=== PATIENT | male | born 1955 | race Caucasian/White ===

== ENCOUNTER 2016-09-17 17:18 | Inpatient (IN) ==
[2016-09-17] MEDS ORDERED: NITROGLYCERIN 2% OINT 1 INCH/GM PACK TOP STA (18:35)
[2016-09-17] MEDS ORDERED: ASPIRIN 325 MG TABLET PO STA (18:35)
[2016-09-17] MEDS ORDERED: ALUM/MAG/SIMETH/LIDO VISC 1:1 30 ML BOTTLE PO STA (18:35)
[2016-09-17] MEDS ORDERED: ONDANSETRON 4 MG/2 ML VIAL IV STA (18:35)
[2016-09-17] MEDS ORDERED: METOPROLOL TARTRATE 25 MG TABLET PO STA (18:35)
[2016-09-17] MEDS ORDERED: FUROSEMIDE 40 MG/4 ML VIAL IV STA (18:35)
[2016-09-17] MEDS ORDERED: MORPHINE 2 MG/1 ML SYRINGE IV STA (18:35)
[2016-09-17] MEDS ORDERED: ALBUTEROL/IPRATROPIUM 3 ML NEB RESP TX STA (18:37)
[2016-09-17] MEDS ORDERED: methylPREDNISolone SOD SUC 125 MG/2 ML VIAL IV STA (18:37)
[2016-09-17] MEDS ORDERED: FUROSEMIDE 40 MG/4 ML VIAL ONE (18:42)
[2016-09-17] MEDS ORDERED: METOPROLOL TARTRATE 25 MG TABLET ONE (18:42)
[2016-09-17] MEDS ORDERED: ONDANSETRON 4 MG/2 ML VIAL ONE (18:42)
[2016-09-17] MEDS ORDERED: NITROGLYCERIN 2% OINT 1 INCH/GM PACK TOP ONE (18:42)
[2016-09-17] MEDS ORDERED: MORPHINE 2 MG/1 ML SYRINGE ONE (18:43)
[2016-09-17] MEDS ORDERED: ASPIRIN 325 MG TABLET ONE (18:43)
[2016-09-17] MEDS ORDERED: ALUM/MAG/SIMETH/LIDO VISC 1:1 30 ML BOTTLE PO ONE (18:43)
[2016-09-17 18:47] LABS: Basophils # 0.1 10*3/uL (0.0-0.2); Basophils % 0.7 % (0.0-0.8); Eosinophils % 0.4 % (0.00-10.9); Hematocrit 40.5 VOL% (42.0-52.0); Hemoglobin 14.6 GM/DL (14.0-18.0); Immature Granulocytes % 0.3 %; Immature Granulocytes Absolute 0.03 #; Lymphocytes # 1.3 10*3/uL (1.4-4.0); Lymphocytes % 13.8 % (21.2-54.2); Mean Corpuscular Hemoglobin 35 PG (27-34); Mean Corpuscular Volume 97.4 FL (87-102); Mean Platelet Volume 9.6 FL (9.6-12.0); Monocytes # 0.6 10*3/uL (0.11-0.8); Monocytes % 6.6 % (1.7-12.7); Neutrophils # 7.1 10*3/uL (1.4-7.4); Neutrophils % 78.2 % (38.7-73.9); Platelet Count 194 10*3/uL (130-400); Red Blood Count 4.16 10*6/uL (3.8-5.5); Red Cell Distribution Width 11.9 % (9.3-17.3); White Blood Count 9.1 10*3/uL (4.5-13.71)
--- NOTE | 2016-09-17 19:01 | XRay Report ---
History: Chest pain Date: 09/17/2016 at 6:30 PM Study: Chest x-ray AP portable Comparison exam: Chest x-ray June 15, 2014 There is mild cardiomegaly. The mediastinal contours are unchanged. The pulmonary vasculature is not grossly engorged. There is no gross pleural effusion. The exam was performed in shallow inspiration. There is mild platelike scar or subsegmental atelectasis in the lung bases. There is no yasir pneumonia. The osseous structures are unchanged. Impression: Cardiomegaly without overt CHF. Shallow inspiration with mild platelike scarring or subsegmental atelectasis in the lung bases PROCEDURE INTERPRETED AT [facility] DEPARTMENT OF RADIOLOGY Final Report Signed by: Dr. Regina Foley
--- NOTE | 2016-09-17 19:01 | Emergency Department Note ---
IGigi Emily, am scribing for, and in the presence of, Tom Vallejo MD 18: 48. Genevieve Olivera Charles R, MD, personally performed the services described in this documentation, ascribed by Janelle Yu in my presence, and it is both accurate and complete 901 . Arrival - Arrival Chief Complaint: Chest Pain Stated Complaint: CHEST PAIN ED Nursing Triage Note: c/o chest pain for a couple of hours. hx:OK. c/o sweating, n/v, sob. feed management advisor was Dr. Francis but has not seen in a while Mode of Arrival: Wheelchair Limitations: No Limitations Source: Patient Time Seen by Provider: 09/17/16 18:28 - History of Present Illness HPI Narrative: Pt is a 61 y/o male who came to ED with c/o mid sternal chest pain that started around 4:30pm today and now has resolved to a 1 point on pain scale. 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 Pt's last OK was in 2006, with stents and balloons. He was seeing Dr. Francis and had stress test 2 years ago, but has not seen someone since. Pt states he "chewed up a 325 aspirin" when pain started today, and is compliant with daily medications. Pt takes fish oil pills but denies taking plavax. Pt had associated sxs of frothy fluid in chest, orthopnea, N/V, diaphoresis, and bilateral pedal edema and numbness to arches of feet. 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 Onset (ago): hour(s) Consistency: constant, now resolved Severity: mild, moderate Severity scale (1-10): 1 Quality: sharp Allergies/Adverse Reactions: Allergies Allergy/AdvReac Type Severity Reaction Status Date / Time lisinopril Allergy ANAPHYLAXIS Verified 09/17/16 17:36 Home Medications: Home Medications Medication Instructions Recorded Confirmed Type Unable To Obtain [Unable to Obtain] 09/17/16 09/17/16 History Review of System - Review of System 12 point system: reviewed and no additional remarkable complaints except as stated - Review of System Constitutional: Present: diaphoresis. Absent: chills, fever Head/Ears/Nose/Throat: Absent: nasal drainage, sore throat Respiratory: Present: cough, respiratory distress (chronic SOB) Cardiovascular: Present: chest pain, orthopnea, edema (bilateral feet). Absent : palpitations Gastrointestinal: Present: nausea, vomiting. Absent: abdominal pain Musculoskeletal: Present: arm pain (left elbow with skin growth of tumor has grown since last visit; painful; ). Absent: back pain, leg pain, neck pain Skin: Absent: rash Neurological: Present: numbness (arches of feet). Absent: headache, paresthesias Psychiatric: Absent: anxiety Medical,Surgical,& Family Hx - Medical History Cardio: History of: Hypertension, [place] Endocrine: History of: Dyslipidemia Respiratory: History of: COPD - Surgical History Cardiac Surgeries: Sugical HX of: Cardiac Catheterization - Social History Smoking Status: Never smoker Frequency of Alcohol Use: Frequently Type of Drug Use: None Marital Status: Lives With:: Spouse Functional capacity: independent ambulation Exam Vital Signs: Vital Signs Temperature 97.2 F L 09/17/16 17:29 Pulse Rate 100 H 09/17/16 18:56 Respiratory Rate 18 09/17/16 18:56 Blood Pressure 171/99 09/17/16 17:29 O2 Sat by Pulse Oximetry 98 09/17/16 18:54 - General General appearance: alert, in no apparent distress - Head Head exam: Present: atraumatic, normocephalic - Eye Eye exam: Present: PERRL, EOMI - ENT ENT exam: Present: mucous membranes moist. Absent: mucous membranes dry - Neck Neck exam: Present: full ROM. Absent: tenderness - Chest Chest inspection: Present: symmetric chest wall rise. Absent: tenderness - Respiratory Respiratory exam: Present: rhonchi (bilateral). Absent: normal lung sounds bilaterally, accessory muscle use - Cardiovascular Cardiovascular exam: Present: regular rate, normal rhythm, normal heart sounds - Abdominal Exam Abdominal exam: Present: soft. 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 Absent: tenderness - Back Exam Back exam: Present: full ROM. Absent: tenderness - Neurological Exam Neurological exam: Present: alert, oriented X3, CN II-XII intact, normal gait. Absent: motor sensory deficit - Psychiatric Psychiatric exam: Present: normal affect, normal mood - Skin Skin exam: Present: warm, dry Course - Consultations Consultation #1: Dr. Erickson will admit patient Time: 19:27 Results - Labs CBC & BMP: 09/17/16 18:16 09/17/16 18:16 Lab Results: I have reviewed the patients labs Labs: Laboratory Tests 09/17/16 18:16 Hct 40.5 L MCH 35 H Neut % (Auto) 78.2 H Lymph % (Auto) 13.8 L Lymph # (Auto) 1.3 L Laboratory Tests 09/17/16 18:16 Anion Gap 18.1 H Glucose 144 H AST 159 H ALT 157 H - Diagnostic Findings Procedure: Chest x-ray: report reviewed by me (Cardiomegaly without overt CHF. Shallow inspiration with mild platelike scarring or subsegmental atelectasis in the lung bases.) Critical Care Time Critical Care Time: Yes Total Critical Care Time: 60 Disposition Clinical Impression: Chest pain, Stable angina Case discussed with: patient, patient's family Disposition: Still a Patient Condition: Stable Time of Disposition: 19:27
[2016-09-17] MEDS ORDERED: methylPREDNISolone SOD SUC 125 MG/2 ML VIAL ONE (19:10)
--- NOTE | 2016-09-17 19:13 | EKG Report ---
Stationary ECG Study [facility] ER Test Date: 09/17/2016 5:33:33 PM Pat Name: DESIREE SÁNCHEZ Department: Room: Gender: M Associate Quality Engineer: Devon Harris : 1955 Requested by: Tom Garcia Order Number: [id number] Ousmane MD: LANCE PEREZ Intervals [place] Rate: 86 P: 53 MS: 159 QRS: 17 QRSD: 98 T: 58 QT: 354 QTc: 398 Interpretive Statements SINUS RHYTHM NORMAL ECG Electronically Signed On 09-18-16 04:22:21 SQUAD LEADER by LANCE PEREZ [email or web address]
[2016-09-17 19:22] LABS: Alanine Aminotransferase 157 U/L (16-61); Albumin 4.2 G/DL (3.4-5.0); Alkaline Phosphatase 72 U/L (45-117); Aspartate Amino Transferase 159 U/L (0-37); Blood Urea Nitrogen 16 MG/DL (7-18); Calcium 9.7 MG/DL (8.5-10.1); Glucose 144 MG/DL (74-106); Magnesium 1.9 MG/DL (1.8-2.4); Potassium 4.1 MMOL/L (3.5-5.1); Sodium 143 MMOL/L (136-145); Total Protein 7.6 G/DL (6.4-8.3)
[2016-09-17 19:23] LABS: Troponin I Only < 0.015 NG/ML (0.00-0.045)
[2016-09-17] MEDS ORDERED: MAGNESIUM SULF RIDER 4 GM in PREMIX 1 EACH IV PRN (20:25)
[2016-09-17] MEDS ORDERED: POTASSIUM CHLORIDE 20 MEQ TABLET PO PRN (20:25)
[2016-09-17] MEDS ORDERED: ONDANSETRON 4 MG/2 ML VIAL IV PRN (20:25)
[2016-09-17] MEDS ORDERED: MAGNESIUM SULF RIDER 2 GM in PREMIX 1 EACH IV PRN (20:25)
[2016-09-17] MEDS: SODIUM CHLORIDE 0.9% 1,000 ML IV SCH (20:46)
[2016-09-17] MEDS ORDERED: INFLUENZA VIRUS VACCINE 0.5 ML SYRINGE IM ONE (20:55)
[2016-09-17] MEDS ORDERED: PNEUMOCOCCAL VACCINE (23 VALENT) 0.5 ML VIAL IM ONE (20:55)
[2016-09-17] MEDS: ENOXAPARIN 100 MG/ML SYRINGE SUBCUT SCH (21:21)
--- NOTE | 2016-09-18 00:17 | EKG Report ---
Stationary ECG Study [facility] Test Date: 09/18/2016 12:10:32 AM Pat Name: DESIREE SÁNCHEZ Department: Room: 272 Gender: M Hull Builder: ALVARO : 1955 Requested by: Tom Garcia Order Number: [id number] Ousmane MD: LANCE PEREZ Intervals [place] Rate: 78 P: 54 DC: 156 QRS: 11 QRSD: 100 T: 58 QT: 407 QTc: 441 Interpretive Statements SINUS RHYTHM INCOMPLETE RIGHT BUNDLE BRANCH BLOCK Electronically Signed On 09-18-16 04:30:21 DRIER OPERATOR HEAD by LANCE PEREZ [email or web address]
[2016-09-18] MEDS: NITROGLYCERIN 2% OINT 1 INCH/GM PACK TOP SCH ×4 (01:10→17:45)
[2016-09-18 04:38] LABS: Basophils % 0.4 % (0.0-0.8); Eosinophils % 0.1 % (0.00-10.9); Hematocrit 40.9 VOL% (42.0-52.0); Hemoglobin 14.3 GM/DL (14.0-18.0); Immature Granulocytes % 0.7 %; Immature Granulocytes Absolute 0.06 #; Lymphocytes # 0.8 10*3/uL (1.4-4.0); Lymphocytes % 9.4 % (21.2-54.2); Mean Corpuscular Hemoglobin 34 PG (27-34); Mean Corpuscular Volume 97.6 FL (87-102); Mean Platelet Volume 10.1 FL (9.6-12.0); Monocytes # 0.1 10*3/uL (0.11-0.8); Monocytes % 0.7 % (1.7-12.7); Neutrophils # 7.4 10*3/uL (1.4-7.4); Neutrophils % 88.7 % (38.7-73.9); Platelet Count 235 10*3/uL (130-400); Red Blood Count 4.19 10*6/uL (3.8-5.5); Red Cell Distribution Width 11.9 % (9.3-17.3); White Blood Count 8.4 10*3/uL (4.5-13.71)
[2016-09-18 05:07] LABS: Albumin 4.1 G/DL (3.4-5.0); Bilirubin,Total 1.2 MG/DL (0.2-1.0); Calcium 9.4 MG/DL (8.5-10.1); Osmolality,Calculated 284.4 MOS/KG (273-304); Potassium 4.1 MMOL/L (3.5-5.1); Risk Ratio 3.92; Total Protein 7.5 G/DL (6.4-8.3); VLDL CHOLESTEROL 16.8 MG/DL
--- NOTE | 2016-09-18 08:25 | XRay Report ---
XR chest 2V Indication: Shortness of breath. Comparison: AP chest September 17, 2016 Technique: PA and lateral chest x-ray was performed. Findings: The heart size appears borderline in size, stable. The mediastinal contour and hilar structures demonstrate no significant abnormalities. Lungs are clear. Bones and soft tissues demonstrate no evidence of acute pathology. Impression: 1. No active cardiopulmonary disease. 09/18/2016 8:21 AM PROCEDURE INTERPRETED AT [facility] DEPARTMENT OF RADIOLOGY Final Report Signed by: Dr. Sam Isaac
[2016-09-18] MEDS ORDERED: diphenhydrAMINE CAP 25 MG CAPSULE PO ONE (10:51)
[2016-09-18] MEDS ORDERED: MAGNESIUM SULF RIDER 2 GM in PREMIX 1 EACH IV PRN (10:51)
[2016-09-18] MEDS ORDERED: ASPIRIN 325 MG TABLET PO ONE (10:51)
[2016-09-18] MEDS ORDERED: DIAZEPAM 5 MG TABLET PO ONE (10:51)
[2016-09-18] MEDS ORDERED: POTASSIUM CHLORIDE RIDER 10 MEQ in PREMIX 1 EACH IV PRN (10:51)
--- NOTE | 2016-09-18 10:51 | Cardiology History & Physical ---
Jose Olivera Lauren, RN, am scribing for, and in the presence of, Talon Austin MD 10:41. Assessment and Plan - Time spent with patient Time spent with patient: Greater than 30 minutes (1) Chest pain Status: Acute Assessment and plan: The patient's chest pain is somewhat atypical for cardiac. He though does have risk factors for such. He should have further evaluation. He has multiple risk fashion including family history, known history of coronary disease and percutaneous intervention. Current Visit: Yes (2) Stable angina Status: Acute Assessment and plan: This chest pain certainly may be angina. At present is stable. Current Visit: Yes (3) Shortness of breath Status: Chronic Assessment and plan: He has chronic shortness of breath that is related more to COPD according to his history. Current Visit: Yes (4) Nausea & vomiting Status: Chronic Assessment and plan: This is rather chronic issue. He has had GI evaluation previously was apparently unremarkable. This is based on old charts material. Current Visit: Yes (5) Hypertension Status: Chronic Assessment and plan: Past history this and is on medications. There is some question though if he is compliant with this. Current Visit: Yes (6) COPD (chronic obstructive pulmonary disease) Status: Chronic Assessment and plan: Chronic and secondary probably to his smoking. He is been seen by pulmonary medicine previously. Current Visit: Yes (7) GERD (gastroesophageal reflux disease) Status: Chronic Assessment and plan: He has chronic symptoms of this is probably related to diet as well as obesity. Current Visit: Yes (8) CAD (coronary artery disease) Problem details: Received bare metal stent placement to proximal left anterior descending artery 06/25/07. Status: Acute Assessment and plan: Received bare metal stent placement to proximal left anterior descending artery 06/25/07. Now having chest pain for which he needs reevaluation. Current Visit: Yes (9) Status post placement of bare metal coronary artery stent Problem details: Received bare metal stent placement to proximal left anterior descending artery 06/25/07. Status: Chronic Assessment and plan: This is placement LAD. Had PTCA of circumflex artery. Current Visit: Yes (10) Former smoker Problem details: Quit 4 years ago. Status: Chronic Assessment and plan: Quit 4 years ago. Current Visit: Yes (11) Umbilical hernia Status: Chronic Current Visit: Yes History of Present Illness Chief complaint: chest pain, nausea, vomiting History of present illness: Mr. Bolaños is a 61 year old male, no longer routinely followed by Cardiology. He has been without insurance for quite some time and due to financial reasons, he He has a history of coronary artery disease status post bare metal stent to the proximal left anterior descending artery 06/25/07, hypertension, chronic obstructive pulmonary disease, gastroesophageal reflux disease with hiatal hernia, and obesity. He has risk factors significant for: age, former smoker, hypertension, sedentary lifestyle, family history of heart disease, personal history. He quit smoking 4 years ago. He presented to the emergency department last night with complaints of midsternal chest discomfort that began around 1630. He reports this is the same pain he was having with previous DE. Mr. Bolaños describes this pain as sharp, midsternal, and non-radiating. He has some episodes of chest tightness. This actually is precipitated with coughing He reports he had some associated nausea with vomiting and diaphoresis. He reports feeling like he "couldn't breathe" like he might pass out. He reports he always has issues with shortness of breath due to his lung disease/COPD. He reports spitting up a "white phlegm" after he vomited. He reports having occasional midsternal to left breast chest discomfort when he picks up something heavy and reportedly has bilateral lower extremity edema. He though has no edema today and he has no PND or orthopnea symptomatology. 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 He is currently uninsured and attempting to raise money to have this removed. He has had several negative stress tests since his stent in 2006, last stress test was done 06/16/14 but I am unable to open this report in the system. Previous stress test from 02/19/13 reveals ejection fraction of 55% with relatively normal stress test. Thus far his cardiac biomarkers are negative and ECG is unremarkable. He is allergic to lisinopril. He reports his throat closed off when he was previously on this medication. I discussed cardiac catheterization and percutaneous coronary intervention with the patient and available family. I reviewed with them the indications for the procedure and the basis of how the procedure would be carried out. I also reviewed with them the risk of the procedure which include but not necessarily limited to access site bleeding, bruising, pain, swelling or vascular injury that may require emergency vascular surgery, blood transfusion, or thrombin injection. Also discussed the possibility of stroke, myocardial infarction, arrhythmia which may require electrocardioversion, and the possibility of dye reaction that would require medical therapy. Also discussed the possibility of coronary artery injury, ruptured, closure or perforation that may require emergency bypass surgery. We also discussed the possibility of from a major complication. They voice understanding and agree to proceed. I have discussed this with Dr. Van. Home Medications Medication Instructions Recorded Confirmed Type Amlodipine Besylate 10 mg PO DAILY 09/18/16 09/18/16 History Aspirin [Ecotrin] 325 mg PO DAILY 09/18/16 09/18/16 History Losartan/Hydrochlorothiazide 1 tablet PO DAILY 09/18/16 09/18/16 History [Losartan-Hctz 100-12.5 mg Tab] Magnesium Chloride [Slow Mag] 64 mg PO BID 09/18/16 09/18/16 History Metoprolol Tartrate 25 mg PO DAILY 09/18/16 09/18/16 History [place]-3S/Dha/Epa/Fish Oil [Fish 1 capsule PO DAILY 09/18/16 09/18/16 History Oil 1,200 mg Softgel] Allergies Allergy/AdvReac Type Severity Reaction Status Date / Time lisinopril Allergy ANAPHYLAXIS Verified 09/17/16 17:36 - Constitutional Constitutional: Present: chills, fatigue, fever(s), night sweats. Absent: anorexia, daytime sleepiness, excessive sweating, frequent falls, headache(s), increased appetite, lethargy, malaise, stops breathing during sleep, weakness, weight gain, weight loss - EENT Eyes: Absent: blurry vision, diplopia, loss of vision Ears: Absent: decreased hearing, ear discharge, ear pain Nose, mouth and throat: Present: nasal congestion (reports he had a cold 2 weeks ago). Absent: dysphagia, epistaxis, headache(s), hoarseness, lip swelling , neck mass, neck pain, sinus pressure, sore throat, throat swelling, tongue swelling, vertigo - Cardiovascular Cardiovascular: Present: as per HPI, chest pain at rest, chest pain with activity, diaphoresis, dyspnea, dyspnea on exertion, edema (to BLE). Absent: claudication, radiating jaw, neck or arm pain, lightheadedness, orthopnea, palpitations, PND - Respiratory Respiratory: Present: as per HPI, cough, dyspnea, dyspnea on exertion. Absent: hemoptysis, wheezing, snoring, pain on inspiration, change in phlegm color - Gastrointestinal Gastrointestinal: Present: abdominal pain (bilateral lower quadrants), nausea, vomiting, other (umbilical hernia ). Absent: bloating, change in bowel habits, coffee ground emesis, constipation, cramping, diarrhea, dyspepsia, dysphagia, early satiety, fecal incontinence, heartburn, hematemesis, hematochezia, loose stools - Genitourinary Genitourinary: Absent: difficulty urinating, dysuria, flank pain, hematuria, urinary frequency, urinary incontinence - Musculoskeletal Musculoskeletal: Absent: arthralgias, back pain, joint swelling, limited range of motion, muscle cramps, muscle weakness, myalgias - Neurological Neurological: Present: numbness (to soles of bilateral feet x 3 months). Absent : abnormal gait, abnormal speech, behavioral changes, confusion, convulsions, disequilibrium, dizziness, focal weakness, frequent falls, headache(s), memory loss, paresthesias, radicular pain, syncope, tremor(s) - Psychiatric Psychiatric: Absent: anxiety, confusion, depression, difficulty concentrating, memory loss, panic attacks - Endocrine Endocrine: Absent: cold intolerance, fatigue, heat intolerance, polydipsia, polyphagia - Hematologic/Lymphatic Hematologic/Lymphatic: Absent: easy bleeding, easy bruising, lymphadenopathy Medical,Surgical,& Family Hx - Medical History Cardio: History of: CAD, Hypertension, [place] Endocrine: History of: Dyslipidemia Respiratory: History of: COPD - Surgical History Cardiac Surgeries: Sugical HX of: Cardiac Catheterization - Social History Smoking Status: Never smoker Frequency of Alcohol Use: Frequently Type of Drug Use: None Cardiology Physical Exam - Constitutional Vitals: Vital Signs Temp Pulse Resp BP Pulse Ox 97.6 F 94 H 21 132/81 95 09/18/16 04:00 09/18/16 04:00 09/18/16 04:00 09/18/16 04:00 09/18/16 04:00 Intake and Output 09/17/16 09/18/16 09/18/16 22:59 06:59 14:59 Intake Total 120 / 120 Output Total 500 / 500 Balance 120 / 120 -500 / -500 Intake: Oral 120 / 120 Output: Urine 500 / 500 Other: # Voids 1 Weight 250 lb 247 lb 1 oz Exam: General appearance: no acute distress, morbidly obese Head exam: Present: normal inspection, normocephalic Eye exam: Absent: conjunctival injection, periorbital swelling, scleral icterus Pupils: Present: BOUBACAR. Absent: irregular ENT exam: Present: normal exam, normal external ear exam Neck exam: Present: normal inspection. The patient's right carotid artery bruit. Bilateral carotids with good upstroke. Absent: tenderness Respiratory exam: Present: clear to auscultation bilaterally. Good air movement. Absent: accessory muscle use, chest wall tenderness, rales, rhonchi, stridor, wheezes. Cardiovascular exam: Present: regular rate and rhythm. No murmur gallop or rub. Absent: carotid bruit, diastolic murmur, systolic murmur GI/Abdominal exam: Present: normal bowel sounds, soft. Obese. Absent: distended, mass, tenderness Extremities exam: Present: normal inspection, edema (trace), other (1-2+ DP pulses bilaterally). Absent: calf tenderness Back exam: Present: normal inspection. Absent: vertebral tenderness Neurological exam: Present: alert, oriented X3, other (grossly intact, no resting or essential tremor) Psychiatric exam: Present: normal affect, normal mood Skin exam: Present: normal color, warm, dry, intact Result/EKG - Labs CBC & BMP: 09/18/16 02:40 09/18/16 02:40 Lab Results: I have reviewed the past 24 hour labs Labs: Laboratory Results - last 24 hr 09/17/16 09/17/16 09/18/16 20:28 22:52 02:40 WBC RBC Hgb Hct MCV MCH MCHC RDW Plt Count MPV Neut % (Auto) Lymph % (Auto) [place] % (Auto) Eos % (Auto) Baso % (Auto) Neut # (Auto) Lymph # (Auto) [place] # (Auto) Eos # (Auto) Baso # (Auto) Immature Gran % Nucleated RBC % Immature Gran # Nucleated RBCs # Sodium Potassium Chloride Carbon Dioxide Anion Gap BUN Creatinine GFR Calculation BUN/Creatinine Ratio Glucose Calculated Osmolality Calcium Magnesium Total Bilirubin AST ALT Alkaline Phosphatase Troponin I < 0.015 < 0.015 B-Natriuretic Peptide Total Protein Albumin Globulin Albumin/Globulin Ratio Triglycerides Cholesterol LDL Cholesterol VLDL Cholesterol HDL Cholesterol Heart Disease Risk Ratio Free T4 TSH 3rd Generation 1.600 09/18/16 09/18/1609/18/17 02:40 02:40 02:40 WBC 8.4 RBC 4.19 Hgb 14.3 Hct 40.9 L MCV 97.6 MCH 34 MCHC 35.0 RDW 11.9 Plt Count 235 D MPV 10.1 Neut % (Auto) 88.7 H Lymph % (Auto) 9.4 L [place] % (Auto) 0.7 L Eos % (Auto) 0.1 Baso % (Auto) 0.4 Neut # (Auto) 7.4 Lymph # (Auto) 0.8 L [place] # (Auto) 0.1 L Eos # (Auto) 0.0 Baso # (Auto) 0.0 Immature Gran % 0.7 Nucleated RBC % 0.0 Immature Gran # 0.06 Nucleated RBCs # 0.00 Sodium 140 Potassium 4.1 Chloride 100 Carbon Dioxide 26 Anion Gap 18.1 H BUN 18 Creatinine 1.10 GFR Calculation 95 BUN/Creatinine Ratio 16.00 Glucose 176 H Calculated Osmolality 284.4 Calcium 9.4 Magnesium 2.0 Total Bilirubin 1.20 H AST 120 H ALT 141 H Alkaline Phosphatase 72 Troponin I B-Natriuretic Peptide 55 Total Protein 7.5 Albumin 4.1 Globulin 3.4 Albumin/Globulin Ratio 1.2 Triglycerides 84 Cholesterol 259 H LDL Cholesterol 165.0 VLDL Cholesterol 16.8 HDL Cholesterol 66 H Heart Disease Risk Ratio 3.92 Free T4 TSH 3rd Generation 09/18/16 02:40 WBC RBC Hgb Hct MCV MCH MCHC RDW Plt Count MPV Neut % (Auto) Lymph % (Auto) [place] % (Auto) Eos % (Auto) Baso % (Auto) Neut # (Auto) Lymph # (Auto) [place] # (Auto) Eos # (Auto) Baso # (Auto) Immature Gran % Nucleated RBC % Immature Gran # Nucleated RBCs # Sodium Potassium Chloride Carbon Dioxide Anion Gap BUN Creatinine GFR Calculation BUN/Creatinine Ratio Glucose Calculated Osmolality Calcium Magnesium Total Bilirubin AST ALT Alkaline Phosphatase Troponin I B-Natriuretic Peptide Total Protein Albumin Globulin Albumin/Globulin Ratio Triglycerides Cholesterol LDL Cholesterol VLDL Cholesterol HDL Cholesterol Heart Disease Risk Ratio Free T4 1.12 TSH 3rd Generation - Impressions Impressions: ECG with normal sinus rhythm within normal limits. - EKG EKG results: interpreted by me, sinus rhythm I, Talon Austin MD, personally performed the services described in this documentation, ascribed by Garcai,Jayne, RN in my presence, and it is both accurate and complete .
[2016-09-18] MEDS: FUROSEMIDE 20 MG/2 ML VIAL IV SCH ×2 (11:03→16:04)
[2016-09-18] MEDS: ENOXAPARIN 100 MG/ML SYRINGE SUBCUT SCH ×2 (11:32→20:13)
[2016-09-18] MEDS: ASPIRIN EC 325 MG TABLET PO SCH (11:32)
[2016-09-18] MEDS: PANTOPRAZOLE 40 MG TABLET PO SCH (11:33)
[2016-09-18] MEDS ORDERED: HEPARIN/NACL 0.9% 2 UNITS/ML 0 ML IV ONE (12:20)
[2016-09-18] MEDS ORDERED: LIDOCAINE 1% 20 ML VIAL ONE (12:20)
[2016-09-18] MEDS ORDERED: HEPARIN/NACL 0.9% 2 UNITS/ML 500 ML IV ONE ×2 (12:22→12:28)
[2016-09-18] MEDS ORDERED: HYDROmorphone 2 MG/1 ML VIAL ONE (12:36)
[2016-09-18] MEDS ORDERED: MIDAZOLAM 2 MG/2 ML VIAL ONE (12:36)
--- NOTE | 2016-09-18 14:32 | Cardiac Catheterization ---
Date of Procedure:: 09/18/16 Pre-op Diagnosis: Chest pain CAD Post-op diagnosis: same Procedure: Cardiac catheterization procedure note #1 left heart catheterization #2 selective coronary angiography #3 left ventriculography #4 LIRA angiograph #5 unsuccessful angioplasty LAD Omnipaque was used for the procedure I description of procedure Following sterile preparation and draping of the right groin local anesthesia was achieved by infiltration of 1% Xylocaine. Using a Cook needle the right femoral artery was cannulated and every 6 sheath was inserted. A 6 [place] pigtail catheter was introduced and advanced retrograde across aortic valve into the left ventricle and the end-diastolic pressure was recorded. Left ventriculography was performed the SLADE projection using 24 cc of contrast material. A pullback was made across phytic valve. The pigtail catheter was exchanged for a 6 [place] left Natalia catheter and left coronary angiography was performed in several SLADE and DAVID projections. The cath exchanged for a 6 [place] right Amplatz catheter and right coronary angiography was performed in SLADE and DAVID projections. Cath exchanged for a 6 [place] left Natalia guiding catheter in the left main was recannulated. Despite several attempts the wire could not cross the proximal stenosis. The proximal vessel is tortuous and has a knuckle and even a venture catheter could not cross the lesion. The wire was removed. A 6 [place] VANCE catheter was introduced and LIRA angiography was performed in the DAVID projection only. The catheter and sheath were then removed and the femoral arteriotomy site was sealed with a minx closure device with prompt cessation of bleeding and prompt return of the femoral and foot pulses. No complications ensued. The patient was transferred to the telemetry floor in stable condition. II hemodynamic data A mean of 94. LV 138/18 III selective coronary angiography The left main trunk is widely patent. The LAD has a long 90% stenosis before the first septal advertising operations manager and the previously stented segment. Diagonal branch has mild disease. The circumflex has 40% OM1 stenosis. The OM 2 branch has mild disease only. The dominant coronary artery has a long 90% mid vessel stenosis and a 70% stenosis at the bifurcation. The PDA and posterior branches have mild disease only. The LIRA is a 3 mm widely patent vessel. IV left ventriculography Ejection fraction 60%. No mitral vegetation. No wall motion abnormality. V conclusions Increased LVEDP 18 Ejection fraction 60% with no wall motion abnormalities No mitral regurgitation No aortic valve gradient Left main trunk-patent LAD-long 90% proximal stenosis before first septal advertising operations manager with patent stent segment beyond first septal advertising operations manager. Diagonal branch= mild disease only Circumflex system-40% OM1 and mild disease in the OM 2 branch Dominant RCA-90% mid stenosis and 70% at the bifurcation. The PDA and portably branches have mild disease only LIRA-3 mm non-tortuous patent vessel Unsuccessful angioplasty proximal LAD due to inability the wires to cross the lesion. The proximal vessel is tortuous and has a knob which prevented the wire from crossing the lesion. disposition The patient status post LAD stent in 2006. Since that time has been severe disease progression and he now presents with unstable angina. Cardiac cath shows severe proximal LAD disease before the first septal advertising operations manager and previously stented segment and there is severe disease in the dominant right coronary artery in the mid and distal segment. Ejection fraction is 60%. Significant myocardium at risk. Continue normal saline hydration and Lovenox. A surgery consult will be obtained. I reviewed the cine pictures with his Joana. Implants: No implants Anesthesia: moderate conscious sedation Surgeon / Physician: Alexadnr Van Estimated blood loss: minimal Specimens: none sent Condition: stable - Medications / Follow-up
[2016-09-18] MEDS ORDERED: ZALEPLON 5 MG CAPSULE PO PRN (14:33)
[2016-09-18] MEDS: MORPHINE 2 MG/1 ML SYRINGE IV PRN (16:16)
[2016-09-18] MEDS: SODIUM CHLORIDE 0.9% 1,000 ML IV SCH (22:30)
[2016-09-19] MEDS: NITROGLYCERIN 2% OINT 1 INCH/GM PACK TOP SCH ×5 (01:47→23:28)
[2016-09-19 07:56] LABS: Calcium 9.1 MG/DL (8.5-10.1); Osmolality,Calculated 291.7 MOS/KG (273-304); Potassium 3.6 MMOL/L (3.5-5.1)
--- NOTE | 2016-09-19 08:39 | Cardiology Progress Note ---
Damion Olivera Rachel, RN, am scribing for, and in the presence of, Alexandr Van MD 08:38. Assessment and Plan (1) CAD (coronary artery disease) Problem details: Received bare metal stent placement to proximal left anterior descending artery 06/25/07. Status: Acute Current Visit: Yes (2) Chest pain Status: Acute Current Visit: Yes (3) COPD (chronic obstructive pulmonary disease) Status: Chronic Current Visit: Yes (4) GERD (gastroesophageal reflux disease) Status: Chronic Current Visit: Yes (5) Hypertension Status: Chronic Current Visit: Yes (6) Stable angina Status: Acute Current Visit: Yes (7) Former smoker Problem details: Quit 4 years ago. Status: Chronic Current Visit: Yes (8) Status post placement of bare metal coronary artery stent Problem details: Received bare metal stent placement to proximal left anterior descending artery 06/25/07. Status: Chronic Current Visit: Yes Cardiology - PN: Subj Interval history: Cardiology note 61-year-old man with unstable angina. Cath yesterday showed severe progressive proximally disease and significant RCA and circumflex flex disease with good ejection fraction. LAD lesion could not be wired due to marked vessel tortuosity. Significant myocardium at risk Right groin soft and dry. No bruit or hematoma. Distal pulses 2+. Telemetry benign. Decreased breath sounds but fairly clear. Regular rhythm no gallop. Impression Severe three-vessel CAD Good ejection fraction Active smoker Status post LAD stent [address] Holm to see today Exam (Progress Note) - Constitutional Vitals: Period Temp Pulse Resp BP Sys/Judge Pulse Ox Last 24 Hr 96.4 F-97.8 F 68-100 12-73 106-158/66-89 90-99 General appearance: no acute distress - Head Head exam: Present: normal inspection - Respiratory Respiratory exam: Present: clear to auscultation bilaterally, decreased breath sounds - Cardiovascular Cardiovascular exam: Absent: irregular rhythm - GI/Abdominal GI/Abdominal exam: Present: normal bowel sounds. Absent: tenderness - Extremities Exam Extremities exam: Present: normal inspection, other (right groin stable) - Neurological Exam Neurological exam: Present: alert, oriented X3 - Psychiatric Psychiatric exam: Present: normal affect - Skin Skin exam: Present: normal color, warm, dry Result/EKG - Labs CBC & BMP: 09/18/16 02:40 09/19/16 07:04 Lab Results: I have reviewed the past 24 hour labs Labs: Laboratory Results - last 24 hr 09/19/16 07:04 Sodium 145 Potassium 3.6 Chloride 106 Carbon Dioxide 26 Anion Gap 16.6 H BUN 22 H Creatinine 1.00 GFR Calculation 107 BUN/Creatinine Ratio 22.00 H Glucose 109 H Calculated Osmolality 291.7 Calcium 9.1 - EKG EKG results: interpreted by me, sinus rhythm Specialty Discharge - Follow Up or Referrals - Discharge Medications No Action Losartan/Hydrochlorothiazide [Losartan-Hctz 100-12.5 mg Tab] 1 tablet PO DAILY Aspirin [Ecotrin] 325 mg PO DAILY Amlodipine Besylate 10 mg PO DAILY Metoprolol Tartrate 25 mg PO DAILY [place]-3S/Dha/Epa/Fish Oil [Fish Oil 1,200 mg Softgel] 1 capsule PO DAILY Magnesium Chloride [Slow Mag] 64 mg PO BID ICarlota Thomas, MD, personally performed the services described in this documentation, ascribed by Jana Bruno RN in my presence, and it is both accurate and complete 839 .
--- NOTE | 2016-09-19 09:25 | Cardiothoracic Progress Note ---
Cardiothoracic Subjective Interval history: Patient is a 61-year-old man who is had previous stenting of his anterior descending coronary artery. This was about 10 years ago. He has done well until the past 6 months when he has increasing symptoms of chest discomfort and shortness of breath. Cardiac catheterization yesterday demonstrated restenosis in the anterior descending coronary artery and high-grade occlusion in the right coronary artery. Patient was advised to have bypass surgery and I agree. Surgery is scheduled for Sunday. Exam (Progress Note) - Constitutional Vitals: Period Temp Pulse Resp BP Sys/Judge Pulse Ox Last 24 Hr 96.4 F-97.8 F 68-100 12-73 106-158/66-89 90-99 Result/EKG - Labs CBC & BMP: 09/18/16 02:40 09/19/16 07:04 Labs: Laboratory Results - last 24 hr 09/19/16 07:04 Sodium 145 Potassium 3.6 Chloride 106 Carbon Dioxide 26 Anion Gap 16.6 H BUN 22 H Creatinine 1.00 GFR Calculation 107 BUN/Creatinine Ratio 22.00 H Glucose 109 H Calculated Osmolality 291.7 Calcium 9.1 Specialty Discharge - Follow Up or Referrals - Discharge Medications No Action Losartan/Hydrochlorothiazide [Losartan-Hctz 100-12.5 mg Tab] 1 tablet PO DAILY Aspirin [Ecotrin] 325 mg PO DAILY Amlodipine Besylate 10 mg PO DAILY Metoprolol Tartrate 25 mg PO DAILY [place]-3S/Dha/Epa/Fish Oil [Fish Oil 1,200 mg Softgel] 1 capsule PO DAILY Magnesium Chloride [Slow Mag] 64 mg PO BID
[2016-09-19] MEDS: FUROSEMIDE 20 MG/2 ML VIAL IV SCH ×2 (09:39→15:23)
[2016-09-19] MEDS: PANTOPRAZOLE 40 MG TABLET PO SCH (09:40)
[2016-09-19] MEDS: ASPIRIN EC 325 MG TABLET PO SCH (09:40)
[2016-09-19] MEDS: ENOXAPARIN 100 MG/ML SYRINGE SUBCUT SCH ×2 (09:40→21:10)
[2016-09-19] MEDS ORDERED: CEFUROXIME INJ 1,500 MG in SODIUM CHLORIDE 0.9% 100 ML IV ONE (09:41)
[2016-09-19] MEDS ORDERED: DEXTROSE 50% 25 GM/50 ML VIAL IV PRN (09:41)
[2016-09-19] MEDS ORDERED: GLUCAGON 1 MG VIAL IM PRN (09:41)
[2016-09-19] MEDS ORDERED: SODIUM CHLORIDE 0.9% 1,000 ML IV SCH (10:00)
[2016-09-19 10:37] LABS: Basophils % 0.3 % (0.0-0.8); Eosinophils % 0.2 % (0.00-10.9); Hematocrit 41.3 VOL% (42.0-52.0); Hemoglobin 14.5 GM/DL (14.0-18.0); Immature Granulocytes % 0.4 %; Immature Granulocytes Absolute 0.05 #; Lymphocytes # 2.7 10*3/uL (1.4-4.0); Lymphocytes % 21.4 % (21.2-54.2); Mean Corpuscular HGB Conc 35.1 GM/DL (32-36); Mean Corpuscular Hemoglobin 35 PG (27-34); Mean Corpuscular Volume 99.8 FL (87-102); Mean Platelet Volume 9.8 FL (9.6-12.0); Monocytes # 0.9 10*3/uL (0.11-0.8); Monocytes % 6.9 % (1.7-12.7); Neutrophils # 8.8 10*3/uL (1.4-7.4); Neutrophils % 70.8 % (38.7-73.9); Platelet Count 206 10*3/uL (130-400); Red Blood Count 4.14 10*6/uL (3.8-5.5); Red Cell Distribution Width 11.9 % (9.3-17.3); White Blood Count 12.4 10*3/uL (4.5-13.71)
[2016-09-19 10:40] LABS: ABG Base Excess 3.1 MMOL/L (-2.5-2.5); ABG HCO3 26.7 MMOL/L (20-26); ABG Oxygen Saturation 94.9 % (95-100); ABG PCO2 37.3 MM HG (35-48); ABG PH 7.472 (7.35-7.45); ABG PO2 74.2 MM HG (80-95); ABG TCO2 27.8 MMOL/L (23-27); Allen Test Positive
[2016-09-19 11:06] LABS: Albumin 3.8 G/DL (3.4-5.0); Calcium 8.9 MG/DL (8.5-10.1); Total Protein 7.1 G/DL (6.4-8.3)
[2016-09-19 11:07] LABS: Osmolality,Calculated 286.1 MOS/KG (273-304); Potassium 3.5 MMOL/L (3.5-5.1)
[2016-09-19] MEDS ORDERED: DIAZEPAM 5 MG TABLET PO ONE ×2 (11:27)
--- NOTE | 2016-09-19 12:40 | XRay Report ---
Exam: Chest 2 views Date: September 19, 2016 at 10:14 AM Comparison: Chest 2 views September 18, 2016 Reason: Carotid artery disease Findings: The cardiac silhouette is upper normal in size. No focal consolidation, pneumothorax or pleural fluid is identified. There may be minimal scarring within both lower lung zones, and a fracture of the right eighth rib is suspected. No acute osseous process is seen. Impression: No acute cardiopulmonary process is identified. PROCEDURE INTERPRETED AT [facility] DEPARTMENT OF RADIOLOGY Final Report Signed by: Dr. Becca Salvador
--- NOTE | 2016-09-19 13:46 | EKG Report ---
Stationary ECG Study [facility] Test Date: 09/19/2016 1:45:08 PM Pat Name: DESIREE SÁNCHEZ Department: Room: 272 Gender: M Counter Former: : 1955 Requested by: Ismael Mcarthur Order Number: [id number] Reading MD: SHENA RIVER Intervals [place] Rate: 72 P: 36 IA: 155 QRS: -6 QRSD: 98 T: 50 QT: 394 QTc: 419 Interpretive Statements SINUS RHYTHM INCOMPLETE RIGHT BUNDLE BRANCH BLOCK Electronically Signed On 09-19-16 17:30:20 AUTO WRECKER by SHENA RIVER [email or web address]
[2016-09-19] MEDS: CHLORHEXIDINE 4% SOLN 118 ML BOTTLE TOP SCH ×2 (15:24→21:11)
[2016-09-19] MEDS ORDERED: CHLORHEXIDINE 0.12% ORAL RINSE 60 ML BOTTLE SWISH/SPIT SCH (21:00)
[2016-09-19] MEDS: MORPHINE 2 MG/1 ML SYRINGE IV PRN (21:03)
[2016-09-19] MEDS: SODIUM CHLORIDE 0.9% 1,000 ML IV SCH (21:10)
[2016-09-20] MEDS ORDERED: VANCOMYCIN 1,000 MG VIAL ONE (04:35)
[2016-09-20] MEDS ORDERED: PAPAVERINE 60 MG/2 ML VIAL ONE (04:35)
[2016-09-20] MEDS ORDERED: CEFUROXIME INJ 1,500 MG in SODIUM CHLORIDE 0.9% 100 ML IV ONE (05:00)
[2016-09-20] MEDS ORDERED: DIAZEPAM 5 MG TABLET PO ONE (05:00)
[2016-09-20] MEDS ORDERED: SODIUM CHLORIDE 0.9% 100 ML IV ONE ×2 (05:12→14:12)
[2016-09-20] MEDS: CHLORHEXIDINE 4% SOLN 118 ML BOTTLE TOP SCH ×2 (05:33→10:59)
[2016-09-20] MEDS: NITROGLYCERIN 2% OINT 1 INCH/GM PACK TOP SCH (05:54)
[2016-09-20] MEDS ORDERED: IPRATROPIUM 500 MCG/2.5 ML NEB RESP TX ONE (06:00)
[2016-09-20] MEDS ORDERED: ALBUTEROL 2.5 MG/3 ML NEB RESP TX ONE (06:00)
[2016-09-20] MEDS ORDERED: FAMOTIDINE 20 MG TABLET PO ONE (06:00)
[2016-09-20] MEDS ORDERED: CALCIUM CHLORIDE 1,000 MG/10 ML SYRINGE IV ONE (06:40)
[2016-09-20] MEDS ORDERED: AMINOCAPROIC ACID 5,000 MG/20 ML VIAL IV ONE (06:40)
[2016-09-20] MEDS ORDERED: LIDOCAINE 1% 5 ML VIAL ONE (06:40)
[2016-09-20] MEDS ORDERED: VECURONIUM 10 MG VIAL IV ONE (06:40)
[2016-09-20 07:30] LABS: ABG HCO3 26.2 MMOL/L (20-26); ABG Oxygen Saturation 99.6 % (95-100); ABG PCO2 35.1 MM HG (35-48); ABG PH 7.465 (7.35-7.45); ABG TCO2 21.7 MMOL/L (23-27); Glucose Heart Surgery 120 MG/DL (74-106); Hematocrit Heart Surgery 42.4 PERCENT (42-52); Hemoglobin Heart Surgery 13.8 G/DL (14.0-18.0); Ionized Calcium Arterial 1.16 MMOL/L (1.21-1.46); PCO2 Patient Temp Arterial 35.1 MMHG; PH Patient Temp Arterial 7.465; Patient Temperature 37 CELCIUS; Potassium Heart/CVR 3.1 MMOL/L (3.5-5.1); Sodium Heart/CVR 136 MMOL/L (135-145)
[2016-09-20] MEDS ORDERED: NITROPRUSSIDE 50 MG/2 ML VIAL ONE (07:47)
[2016-09-20] MEDS ORDERED: POTASSIUM CHLORIDE RIDER 100 ML IV ONE (07:47)
[2016-09-20] MEDS ORDERED: PHENYLEPHRINE DRIP 40 MG/250 ML PREMIX IV ONE (07:48)
[2016-09-20 08:47] LABS: Hematocrit Heart Surgery 28.2 PERCENT (42-52); Hemoglobin Heart Surgery 9.1 G/DL (14.0-18.0); PCO2 Patient Temp Venous 38.5 MM HG; PH Patient Temp Venous 7.438; PO2 Patient Temp Venous 33.2 MM HG; Potassium Heart/CVR 3.6 MMOL/L (3.5-5.1); VBG HCO3 25.7 MEQ/L (24-28); VBG PCO2 42.4 MMHG (41-51); VBG PH 7.409; VBG PO2 38.2 MMHG (17-40)
[2016-09-20 09:19] LABS: Hematocrit Heart Surgery 31.6 PERCENT (42-52); Hemoglobin Heart Surgery 10.2 G/DL (14.0-18.0); PCO2 Patient Temp Venous 40.9 MM HG; PH Patient Temp Venous 7.421; PO2 Patient Temp Venous 35.3 MM HG; Potassium Heart/CVR 3.8 MMOL/L (3.5-5.1); VBG Base Excess 2.1 MEQ/L (0-4); VBG HCO3 25.8 MEQ/L (24-28); VBG Oxygen Saturation 69.9 %; VBG PCO2 42.9 MMHG (41-51); VBG PH 7.407; VBG PO2 37.8 MMHG (17-40)
[2016-09-20 09:45] LABS: ABG Base Excess 2.4 MMOL/L (-2.5-2.5); ABG HCO3 26.1 MMOL/L (20-26); ABG Oxygen Saturation 98.1 % (95-100); ABG PCO2 37.1 MM HG (35-48); ABG PH 7.465 (7.35-7.45); ABG PO2 125.6 MM HG (80-95); ABG TCO2 27.2 MMOL/L (23-27); Glucose Heart Surgery 202 MG/DL (74-106); Hemoglobin Heart Surgery 12.1 G/DL (14.0-18.0); Ionized Calcium Arterial 1.17 MMOL/L (1.21-1.46); PCO2 Patient Temp Arterial 37.1 MMHG; PH Patient Temp Arterial 7.465; PO2 Patient Temp Arterial 125.6 MM HG; Patient Temperature 37 CELCIUS; Potassium Heart/CVR 3.7 MMOL/L (3.5-5.1); Sodium Heart/CVR 133 MMOL/L (135-145)
[2016-09-20] MEDS ORDERED: methylPREDNISolone SOD SUC 1,000 MG/8 ML VIAL ONE (09:48)
[2016-09-20] MEDS ORDERED: MAGNESIUM SULFATE 1 GM/2 ML VIAL ONE (09:48)
[2016-09-20] MEDS ORDERED: MANNITOL 12.5 GM/50 ML VIAL IV ONE (09:48)
[2016-09-20] MEDS ORDERED: SODIUM BICARBONATE 50 MEQ/50 ML VIAL IV ONE (09:48)
[2016-09-20] MEDS ORDERED: PHENYLEPHRINE DRIP 20 MG/250 ML PREMIX IV ONE (09:48)
[2016-09-20] MEDS ORDERED: ALBUMIN 25% 25 GM/100 ML VIAL IV ONE (09:48)
[2016-09-20] MEDS ORDERED: PROTAMINE SULFATE 250 MG/25 ML VIAL IV ONE (09:48)
[2016-09-20] MEDS ORDERED: DEXTROSE 5% KCL 20 MEQ 20 MEQ/1,000 ML BAG IV ONE (09:48)
[2016-09-20] MEDS ORDERED: HEPARIN 10,000 UNIT/10 ML VIAL ONE (09:48)
[2016-09-20] MEDS ORDERED: FUROSEMIDE 20 MG/2 ML VIAL ONE (09:49)
[2016-09-20] MEDS ORDERED: PROTAMINE SULFATE 50 MG/5 ML VIAL IV ONE ×4 (09:49→10:46)
[2016-09-20] MEDS ORDERED: POTASSIUM CHLORIDE 20 MEQ/10 ML VIAL ONE (09:49)
[2016-09-20] MEDS ORDERED: MAGNESIUM SULF RIDER 2 GM in PREMIX 1 EACH IV PRN (10:33)
[2016-09-20] MEDS ORDERED: MAGNESIUM SULF RIDER 4 GM in PREMIX 1 EACH IV PRN (10:33)
[2016-09-20] MEDS ORDERED: DEXTROSE 50% 25 GM/50 ML VIAL IV PRN ×2 (10:33)
[2016-09-20] MEDS ORDERED: ALBUMIN 5% 12.5 GM in PREMIX 1 EACH IV PRN (10:33)
[2016-09-20] MEDS ORDERED: CALCIUM CHLORIDE 1,000 MG/10 ML SYRINGE IV PRN (10:33)
[2016-09-20] MEDS ORDERED: INSULIN REGULAR 100 UNIT/ML IV PRN (10:33)
[2016-09-20] MEDS ORDERED: ACETAMINOPHEN 650 MG SUPP RECTAL PRN (10:33)
[2016-09-20] MEDS ORDERED: PHENYLEPHRINE DRIP 40 MG/250 ML PREMIX IV PRN (10:33)
[2016-09-20] MEDS ORDERED: MIDAZOLAM 2 MG/2 ML VIAL IV PRN (10:33)
[2016-09-20] MEDS ORDERED: MORPHINE 10 MG/1 ML VIAL IV PRN (10:33)
[2016-09-20] MEDS ORDERED: LACTATED RINGERS 250 ML IV PRN (10:33)
[2016-09-20] MEDS ORDERED: ONDANSETRON 4 MG/2 ML VIAL IV PRN (10:33)
[2016-09-20] MEDS ORDERED: NITROPRUSSIDE 100 MG in DEXTROSE 5% 250 ML IV PRN (10:33)
[2016-09-20] MEDS ORDERED: VECURONIUM 10 MG VIAL IV PRN ×2 (10:33)
[2016-09-20] MEDS ORDERED: INSULIN REGULAR 100 UNIT/ML IV ONE (10:33)
--- NOTE | 2016-09-20 10:40 | Operative Note ---
Date of procedure: 09/20/16 Pre-op diagnosis: coronary artery disease Post-op diagnosis: same Procedure: Procedure: Coronary bypass grafting 2 with left internal mammary grafted anterior descending coronary artery and a saphenous vein graft to the right posterior descending coronary artery. Findings: Patient is 61-year-old man with substernal chest discomfort and underwent cardiac catheterization demonstrating critical coronary disease. Sinus surgery left ventricular function was noted to be normal and a left internal mammary graft was placed to a large anterior descending coronary artery which was relatively free of disease at the site of anastomosis. Saphenous vein graft was placed to the right posterior descending coronary artery which likewise was a large vessel and free of disease at the site of anastomosis. Patient tolerated the procedure well was returned recovery in satisfactory condition. Procedure: Patient brought to the operating room placed on the operating table in the supine position. After satisfactory induction of general anesthesia the chest abdomen and legs were prepped and draped in a sterile fashion. Greater saphenous vein was harvested from the left lower leg and prepared as an arterial graft. Incision leg was closed with 3-0 subcutaneous Monopril and 3-0 subcuticular Monocryl. Standard sternotomy incision was made and the sternum was divided and the heart suspended in a pericardial cradle. Left internal mammary artery was dissected free from its position and prepared as an arterial graft. The patient was prepared for cardiopulmonary bypass with systemic heparinization and cannulation of the ascending aorta and right atrium. Cardiopulmonary bypass was begun and the aorta was crossclamped and the heart arrested with cardioplegia solution injected into the aortic root. Heart was protected during the period of crossclamping with topical saline slush. Distal anastomoses were constructed as noted above and then the aorta was unclamped reestablished and cardiac action. The proximal anastomosis was constructed between the inflow end of the saphenous vein graft and the ascending aorta. The patient was then weaned from cardiopulmonary bypass without difficulty and heparin effect reversed with protamine and decannulation carried out with the defects in the ascending aorta and right atrium closed with 3-0 Prolene. The operative field was inspected for hemostasis and this was considered adequate the incision was closed with interrupted stainless steel wire and the sternum and Anesthesia: MARIALUISA Surgeon / Physician: Ismael Holm Estimated blood loss: minimal, other (unable to determine because of cardiopulmonary bypass) Specimens: none sent Condition: stable Disposition: ICU Results - Labs CBC & BMP: 09/20/16 09:39 09/19/16 10:05 Discharge Plan - Discharge Medications No Action Losartan/Hydrochlorothiazide [Losartan-Hctz 100-12.5 mg Tab] 1 tablet PO DAILY Aspirin [Ecotrin] 325 mg PO DAILY Amlodipine Besylate 10 mg PO DAILY Metoprolol Tartrate 25 mg PO DAILY [place]-3S/Dha/Epa/Fish Oil [Fish Oil 1,200 mg Softgel] 1 capsule PO DAILY Magnesium Chloride [Slow Mag] 64 mg PO BID - Follow Up or Referral - Forms/Instructions
[2016-09-20 11:00] LABS: ABG Base Excess 1.4 MMOL/L (-2.5-2.5); ABG HCO3 25.7 MMOL/L (20-26); ABG Oxygen Saturation 97.1 % (95-100); ABG PCO2 46.6 MM HG (35-48); ABG PH 7.374 (7.35-7.45); ABG PO2 92.1 MM HG (80-95); ABG TCO2 24.1 MMOL/L (23-27); Glucose Heart Surgery 181 MG/DL (74-106); Hematocrit Heart Surgery 37.3 PERCENT (42-52); Hemoglobin Heart Surgery 12.1 G/DL (14.0-18.0); Potassium Heart/CVR 3.7 MMOL/L (3.5-5.1)
[2016-09-20] MEDS: LACTATED RINGERS 1,000 ML IV PRN ×4 (11:00→13:30)
[2016-09-20] MEDS: SODIUM CHLORIDE 0.45% 1,000 ML IV SCH ×2 (11:01→11:02)
[2016-09-20 11:03] LABS: Basophils % 0.4 % (0.0-0.8); Eosinophils % 0.5 % (0.00-10.9); Hematocrit 33.9 VOL% (42.0-52.0); Immature Granulocytes % 1.4 %; Immature Granulocytes Absolute 0.11 #; Lymphocytes # 1.1 10*3/uL (1.4-4.0); Lymphocytes % 13.8 % (21.2-54.2); Mean Corpuscular HGB Conc 35.4 GM/DL (32-36); Mean Corpuscular Hemoglobin 35 PG (27-34); Mean Corpuscular Volume 98.3 FL (87-102); Mean Platelet Volume 9.8 FL (9.6-12.0); Monocytes # 0.6 10*3/uL (0.11-0.8); Neutrophils # 6.2 10*3/uL (1.4-7.4); Neutrophils % 76.9 % (38.7-73.9); Platelet Count 151 10*3/uL (130-400); Red Blood Count 3.45 10*6/uL (3.8-5.5); Red Cell Distribution Width 11.9 % (9.3-17.3); White Blood Count 8.1 10*3/uL (4.5-13.71)
[2016-09-20] MEDS: POTASSIUM CHLORIDE RIDER 20 MEQ in PREMIX 1 EACH IV PRN ×4 (11:19→23:10)
[2016-09-20] MEDS: MIDAZOLAM 10 MG/2 ML VIAL IV PRN ×3 (11:19→13:30)
--- NOTE | 2016-09-20 11:22 | XRay Report ---
Exam: XR chest 1V portable Indication: Status post CABG, Intubated, central venous catheter placement Comparison study: 09/19/16 at 10:15 AM Findings: Endotracheal tube is noted in position with the tip terminating approximately 3 cm from the danis. Esophagogastric below the field of view median sternotomy wiring is noted. Mediastinal drains are in place with minimal left basilar opacities likely represent atelectasis and trace pleural fluid. There is no pneumothorax. A left-sided central venous catheter is in position with the tip terminating at the cavoatrial junction. Degenerative changes are noted in both shoulders. Impression: Status post CABG with mediastinal drains in place and minimal left basilar atelectasis/effusion noted. No pneumothorax. Left-sided central venous catheter in place. PROCEDURE INTERPRETED AT [facility] DEPARTMENT OF RADIOLOGY Final Report Signed by: Gopal Real
[2016-09-20] MEDS ORDERED: INSULIN REGULAR 100 UNIT/ML SUBCUT ONE (11:23)
[2016-09-20 11:26] LABS: INR 1.4; PT Patient Result 15.2 SECS; Partial Thromboplastin Time 29.1 SECS (0-40)
[2016-09-20 11:30] LABS: Albumin 3.3 G/DL (3.4-5.0); Bilirubin,Total 1.9 MG/DL (0.2-1.0); Calcium 8.3 MG/DL (8.5-10.1); Total Protein 5.7 G/DL (6.4-8.3)
[2016-09-20 11:31] LABS: Magnesium 2.2 MG/DL (1.8-2.4); Potassium 3.8 MMOL/L (3.5-5.1)
[2016-09-20] MEDS: KETOROLAC 30 MG/1 ML VIAL IV SCH ×3 (11:31→22:36)
[2016-09-20 11:38] LABS: CKMB % 6.2 %
[2016-09-20 11:40] LABS: Troponin I Only 1.5 NG/ML (0.00-0.045)
[2016-09-20 11:55] LABS: ABG Base Excess -0.4 MMOL/L (-2.5-2.5); ABG Oxygen Saturation 96.3 % (95-100); ABG PCO2 47.7 MM HG (35-48); ABG PH 7.341 (7.35-7.45); ABG TCO2 23.2 MMOL/L (23-27); Glucose Heart Surgery 157 MG/DL (74-106); Hemoglobin Heart Surgery 11.3 G/DL (14.0-18.0); Potassium Heart/CVR 3.9 MMOL/L (3.5-5.1)
[2016-09-20 12:41] LABS: ABG Base Excess -0.1 MMOL/L (-2.5-2.5); ABG HCO3 24.2 MMOL/L (20-26); ABG PCO2 46.6 MM HG (35-48); ABG PH 7.352 (7.35-7.45); ABG PO2 74.6 MM HG (80-95); ABG TCO2 23.2 MMOL/L (23-27); Glucose Heart Surgery 152 MG/DL (74-106); Hematocrit Heart Surgery 35.8 PERCENT (42-52); Hemoglobin Heart Surgery 11.6 G/DL (14.0-18.0); Potassium Heart/CVR 4.2 MMOL/L (3.5-5.1)
[2016-09-20] MEDS ORDERED: MIDAZOLAM 10 MG/2 ML VIAL IV PRN (13:35)
[2016-09-20] MEDS: chlordiazePOXIDE 25 MG CAPSULE PO SCH ×2 (13:52→18:17)
[2016-09-20] MEDS ORDERED: SEVOFLURANE 1 UNIT/15 MINUTE INH ONE (14:08)
[2016-09-20] MEDS ORDERED: MIDAZOLAM 10 MG/2 ML VIAL ONE (14:11)
[2016-09-20] MEDS ORDERED: SODIUM CHLORIDE 0.9% 1,000 ML IV ONE (14:12)
[2016-09-20] MEDS ORDERED: SODIUM CHLORIDE 0.9% 250 ML IV ONE (14:12)
[2016-09-20] MEDS ORDERED: LACTATED RINGERS 1,000 ML IV ONE (14:12)
[2016-09-20] MEDS: INSULIN REGULAR 100 UNIT/ML SUBCUT SCH ×4 (14:50→22:36)
[2016-09-20] MEDS ORDERED: SUFentanil 250 MCG/5 ML AMP ONE ×2 (15:18→15:19)
[2016-09-20 16:08] LABS: ABG Base Excess 0.8 MMOL/L (-2.5-2.5); ABG HCO3 23.2 MMOL/L (20-26); ABG Oxygen Saturation 96.6 % (95-100); ABG PCO2 30.3 MM HG (35-48); ABG PH 7.501 (7.35-7.45); ABG PO2 88.7 MM HG (80-95); ABG TCO2 24.1 MMOL/L (23-27); Glucose Heart Surgery 189 MG/DL (74-106); Hemoglobin Heart Surgery 13.2 G/DL (14.0-18.0)
--- NOTE | 2016-09-20 16:46 | Cardiology Progress Note ---
Assessment and Plan (1) CAD (coronary artery disease) Problem details: Received bare metal stent placement to proximal left anterior descending artery 06/25/07. Status: Acute Current Visit: Yes (2) Chest pain Status: Acute Current Visit: Yes (3) COPD (chronic obstructive pulmonary disease) Status: Chronic Current Visit: Yes (4) GERD (gastroesophageal reflux disease) Status: Chronic Current Visit: Yes (5) Hypertension Status: Chronic Current Visit: Yes (6) Stable angina Status: Acute Current Visit: Yes (7) Former smoker Problem details: Quit 4 years ago. Status: Chronic Current Visit: Yes (8) Status post placement of bare metal coronary artery stent Problem details: Received bare metal stent placement to proximal left anterior descending artery 06/25/07. Status: Chronic Current Visit: Yes Cardiology - PN: Subj Interval history: Cardiology note Status post two-vessel CABG today with LIRA graft to LAD and vein graft to the PDA Alert and responsive Telemetry shows sinus rhythm 80s-90 Blood pressure 114/80 O2 sat 97 on 50% FiO2 Urine output adequate Regular rhythm no gallop Lab data Hemoglobin 13.2 Potassium 4.0 Glucose 189 200 cc chest tube output today. Plan Weaning vent Follow chest tube output Labs in a.m. Exam (Progress Note) - Constitutional Vitals: Period Temp Pulse Resp BP Sys/Judge Pulse Ox Last 24 Hr 98.0 F-99.0 F 75-97 10-20 83-132/55-83 92-98 Result/EKG - Labs CBC & BMP: 09/20/16 10:50 09/20/16 10:50 Labs: Laboratory Results - last 24 hr 09/19/16 09/20/16 09/20/16 10:05 07:25 07:25 WBC RBC Hgb Hct MCV MCH MCHC RDW Plt Count 125 L D MPV Neut % (Auto) Lymph % (Auto) [place] % (Auto) Eos % (Auto) Baso % (Auto) Neut # (Auto) Lymph # (Auto) [place] # (Auto) Eos # (Auto) Baso # (Auto) Immature Gran % Nucleated RBC % Immature Gran # Nucleated RBCs # INR PT Patient/Control Mix Circ Anticoag PTT Patient Temperature 37 ABG pH 7.465 H ABG pH at Pt Temp 7.465 ABG pCO2 35.1 ABG pCO2 at Pt Temp 35.1 ABG pO2 174.0 H ABG pO2 at Pt Temp 174.0 ABG HCO3 26.2 H ABG Total CO2 21.7 L ABG O2 Saturation 99.6 ABG Base Excess 2.0 ABG Sodium 136 VBG pH VBG pCO2 VBG pO2 VBG HCO3 VBG Total CO2 VBG O2 Saturation VBG Base Excess Hemoglobin 13.8 L Hematocrit 42.4 Potassium 3.1 L Glucose 120 H Ionized Calcium 1.16 L FiO2 Sodium Chloride Carbon Dioxide Anion Gap BUN Creatinine GFR Calculation BUN/Creatinine Ratio Calculated Osmolality Calcium Venous Ioniz Calcium Magnesium Total Bilirubin AST ALT Alkaline Phosphatase Total Creatine Kinase CK-MB (CK-2) CK and CKMB Interp Troponin I Total Protein Albumin Globulin Albumin/Globulin Ratio Blood Type O POSITIVE Antibody Screen Negative Crossmatch See Detail 09/20/16 09/20/16 09/20/16 08:40 09:10 09:39 WBC RBC Hgb Hct MCV MCH MCHC RDW Plt Count 123 L MPV Neut % (Auto) Lymph % (Auto) [place] % (Auto) Eos % (Auto) Baso % (Auto) Neut # (Auto) Lymph # (Auto) [place] # (Auto) Eos # (Auto) Baso # (Auto) Immature Gran % Nucleated RBC % Immature Gran # Nucleated RBCs # INR PT Patient/Control Mix Circ Anticoag PTT Patient Temperature 35 36 ABG pH ABG pH at Pt Temp 7.438 7.421 ABG pCO2 ABG pCO2 at Pt Temp 38.5 40.9 ABG pO2 ABG pO2 at Pt Temp 33.2 35.3 ABG HCO3 ABG Total CO2 ABG O2 Saturation ABG Base Excess ABG Sodium 130 L 132 L VBG pH 7.409 7.407 VBG pCO2 42.4 42.9 VBG pO2 38.2 37.8 VBG HCO3 25.7 25.8 VBG Total CO2 24.8 24.7 VBG O2 Saturation 71.0 69.9 VBG Base Excess 2.0 2.1 Hemoglobin 9.1 L D 10.2 L Hematocrit 28.2 L 31.6 L Potassium 3.6 3.8 Glucose 307 H 234 H Ionized Calcium FiO2 80.00 80.00 Sodium Chloride Carbon Dioxide Anion Gap BUN Creatinine GFR Calculation BUN/Creatinine Ratio Calculated Osmolality Calcium Venous Ioniz Calcium 0.98 L 1.04 L Magnesium Total Bilirubin AST ALT Alkaline Phosphatase Total Creatine Kinase CK-MB (CK-2) CK and CKMB Interp Troponin I Total Protein Albumin Globulin Albumin/Globulin Ratio Blood Type Antibody Screen Crossmatch 09/20/16 09/20/16 09/20/16 09:39 10:50 10:50 WBC 8.1 D RBC 3.45 L Hgb 12.0 L D Hct 33.9 L MCV 98.3 MCH 35 H MCHC 35.4 RDW 11.9 Plt Count 151 D MPV 9.8 Neut % (Auto) 76.9 H Lymph % (Auto) 13.8 L [place] % (Auto) 7.0 Eos % (Auto) 0.5 Baso % (Auto) 0.4 Neut # (Auto) 6.2 Lymph # (Auto) 1.1 L [place] # (Auto) 0.6 Eos # (Auto) 0.0 Baso # (Auto) 0.0 Immature Gran % 1.4 Nucleated RBC % 0.0 Immature Gran # 0.11 Nucleated RBCs # 0.00 INR 1.4 PT Patient/Control Mix 15.2 Circ Anticoag PTT 29.1 Patient Temperature 37 ABG pH 7.465 H ABG pH at Pt Temp 7.465 ABG pCO2 37.1 ABG pCO2 at Pt Temp 37.1 ABG pO2 125.6 H ABG pO2 at Pt Temp 125.6 ABG HCO3 26.1 H ABG Total CO2 27.2 H ABG O2 Saturation 98.1 ABG Base Excess 2.4 ABG Sodium 133 L VBG pH VBG pCO2 VBG pO2 VBG HCO3 VBG Total CO2 VBG O2 Saturation VBG Base Excess Hemoglobin 12.1 L Hematocrit 36.0 L Potassium 3.7 Glucose 202 H Ionized Calcium 1.17 L FiO2 Sodium Chloride Carbon Dioxide Anion Gap BUN Creatinine GFR Calculation BUN/Creatinine Ratio Calculated Osmolality Calcium Venous Ioniz Calcium Magnesium Total Bilirubin AST ALT Alkaline Phosphatase Total Creatine Kinase CK-MB (CK-2) CK and CKMB Interp Troponin I Total Protein Albumin Globulin Albumin/Globulin Ratio Blood Type Antibody Screen Crossmatch 09/20/16 09/20/16 09/20/16 10:50 10:50 10:50 WBC RBC Hgb Hct MCV MCH MCHC RDW Plt Count MPV Neut % (Auto) Lymph % (Auto) [place] % (Auto) Eos % (Auto) Baso % (Auto) Neut # (Auto) Lymph # (Auto) [place] # (Auto) Eos # (Auto) Baso # (Auto) Immature Gran % Nucleated RBC % Immature Gran # Nucleated RBCs # INR PT Patient/Control Mix Circ Anticoag PTT Patient Temperature ABG pH 7.374 ABG pH at Pt Temp ABG pCO2 46.6 ABG pCO2 at Pt Temp ABG pO2 92.1 ABG pO2 at Pt Temp ABG HCO3 25.7 ABG Total CO2 24.1 ABG O2 Saturation 97.1 ABG Base Excess 1.4 ABG Sodium VBG pH VBG pCO2 VBG pO2 VBG HCO3 VBG Total CO2 VBG O2 Saturation VBG Base Excess Hemoglobin 12.1 L Hematocrit 37.3 L Potassium 3.8 3.7 Glucose 170 H 181 H Ionized Calcium FiO2 Sodium 143 Chloride 106 Carbon Dioxide 27 Anion Gap 13.8 BUN 22 H Creatinine 1.10 GFR Calculation 94 BUN/Creatinine Ratio 20.00 Calculated Osmolality 291.0 Calcium 8.3 L Venous Ioniz Calcium Magnesium 2.2 Total Bilirubin 1.90 H AST 227 H ALT 160 H Alkaline Phosphatase 48 Total Creatine Kinase 160 D CK-MB (CK-2) 9.9 H D CK and CKMB Interp 6.2 Troponin I 1.500 H D Total Protein 5.7 L Albumin 3.3 L Globulin 2.4 Albumin/Globulin Ratio 1.3 Blood Type Antibody Screen Crossmatch 09/20/16 09/20/16 09/20/16 11:30 12:35 16:04 WBC RBC Hgb Hct MCV MCH MCHC RDW Plt Count MPV Neut % (Auto) Lymph % (Auto) [place] % (Auto) Eos % (Auto) Baso % (Auto) Neut # (Auto) Lymph # (Auto) [place] # (Auto) Eos # (Auto) Baso # (Auto) Immature Gran % Nucleated RBC % Immature Gran # Nucleated RBCs # INR PT Patient/Control Mix Circ Anticoag PTT Patient Temperature ABG pH 7.341 L 7.352 7.501 H ABG pH at Pt Temp ABG pCO2 47.7 46.6 30.3 L ABG pCO2 at Pt Temp ABG pO2 87.0 74.6 L 88.7 ABG pO2 at Pt Temp ABG HCO3 24.0 24.2 23.2 ABG Total CO2 23.2 23.2 24.1 ABG O2 Saturation 96.3 94.0 L 96.6 ABG Base Excess -0.4 -0.1 0.8 ABG Sodium VBG pH VBG pCO2 VBG pO2 VBG HCO3 VBG Total CO2 VBG O2 Saturation VBG Base Excess Hemoglobin 11.3 L 11.6 L 13.2 L Hematocrit 35.0 L 35.8 L 39.0 L Potassium 3.9 4.2 4.0 Glucose 157 H 152 H 189 H Ionized Calcium FiO2 Sodium Chloride Carbon Dioxide Anion Gap BUN Creatinine GFR Calculation BUN/Creatinine Ratio Calculated Osmolality Calcium Venous Ioniz Calcium Magnesium Total Bilirubin AST ALT Alkaline Phosphatase Total Creatine Kinase CK-MB (CK-2) CK and CKMB Interp Troponin I Total Protein Albumin Globulin Albumin/Globulin Ratio Blood Type Antibody Screen Crossmatch Quality Measures - VTE Contraindication to Pharmacological VTE Prophylaxis: High Risk of Bleeding Specialty Discharge - Follow Up or Referrals - Discharge Medications No Action Losartan/Hydrochlorothiazide [Losartan-Hctz 100-12.5 mg Tab] 1 tablet PO DAILY Aspirin [Ecotrin] 325 mg PO DAILY Amlodipine Besylate 10 mg PO DAILY Metoprolol Tartrate 25 mg PO DAILY [place]-3S/Dha/Epa/Fish Oil [Fish Oil 1,200 mg Softgel] 1 capsule PO DAILY Magnesium Chloride [Slow Mag] 64 mg PO BID
[2016-09-20 17:06] LABS: ABG Base Excess 0.4 MMOL/L (-2.5-2.5); ABG HCO3 24.8 MMOL/L (20-26); ABG Oxygen Saturation 97.1 % (95-100); ABG PCO2 29.7 MM HG (35-48); ABG PH 7.491 (7.35-7.45); ABG PO2 83.2 MM HG (80-95); ABG TCO2 19.8 MMOL/L (23-27); Glucose Heart Surgery 221 MG/DL (74-106); Hematocrit Heart Surgery 39.5 PERCENT (42-52); Hemoglobin Heart Surgery 12.8 G/DL (14.0-18.0); Potassium Heart/CVR 3.9 MMOL/L (3.5-5.1)
[2016-09-20 18:02] LABS: ABG Base Excess -0.5 MMOL/L (-2.5-2.5); ABG Oxygen Saturation 97.3 % (95-100); ABG PCO2 26.5 MM HG (35-48); ABG PH 7.511 (7.35-7.45); ABG PO2 79.4 MM HG (80-95); ABG TCO2 18.5 MMOL/L (23-27); Glucose Heart Surgery 236 MG/DL (74-106); Hematocrit Heart Surgery 38.9 PERCENT (42-52); Hemoglobin Heart Surgery 12.6 G/DL (14.0-18.0); Potassium Heart/CVR 4.1 MMOL/L (3.5-5.1)
--- NOTE | 2016-09-20 18:09 | Operative Note ---
Date of procedure: 09/20/16 Pre-op diagnosis: CAD Post-op diagnosis: same Procedure: [place] of saphenous vein Assist in CABG I mad an incision on the LLE, harvested the saphnous vein from athe ankle level to mid calf, hemostasis was achieved and then moved to the chest to assist with cardiopulmonary bypass cannulation, instituting the distal anastomoses of the LAD and PDA, then proximal anastomiosis. Patient tolerated the procedure well. Then at this point he was ready to wean off bypass. Details of the procedure are in a separate note. Surgeon / Physician: Franklin Galindo Results - Labs CBC & BMP: 09/21/16 02:10 09/21/16 02:10 Discharge Plan - Discharge Medications No Action Losartan/Hydrochlorothiazide [Losartan-Hctz 100-12.5 mg Tab] 1 tablet PO DAILY Aspirin [Ecotrin] 325 mg PO DAILY Amlodipine Besylate 10 mg PO DAILY Metoprolol Tartrate 25 mg PO DAILY [place]-3S/Dha/Epa/Fish Oil [Fish Oil 1,200 mg Softgel] 1 capsule PO DAILY Magnesium Chloride [Slow Mag] 64 mg PO BID - Follow Up or Referral - Forms/Instructions
[2016-09-20] MEDS: POTASSIUM CHLORIDE RIDER 10 MEQ in PREMIX 1 EACH IV PRN ×3 (18:13→23:41)
[2016-09-20] MEDS: CEFUROXIME INJ 1,500 MG in SODIUM CHLORIDE 0.9% 100 ML IV SCH (18:31)
[2016-09-20] MEDS ORDERED: FUROSEMIDE 40 MG/4 ML VIAL IV ONE (18:35)
[2016-09-20] MEDS: MORPHINE 2 MG/1 ML SYRINGE IV PRN ×2 (18:45→23:59)
[2016-09-20 19:14] LABS: ABG Base Excess -1.5 MMOL/L (-2.5-2.5); ABG HCO3 23.1 MMOL/L (20-26); ABG PCO2 37.7 MM HG (35-48); ABG PH 7.394 (7.35-7.45); ABG PO2 82.8 MM HG (80-95); ABG TCO2 20.4 MMOL/L (23-27); Glucose Heart Surgery 247 MG/DL (74-106); Hematocrit Heart Surgery 37.3 PERCENT (42-52); Hemoglobin Heart Surgery 12.1 G/DL (14.0-18.0); Potassium Heart/CVR 3.8 MMOL/L (3.5-5.1)
[2016-09-20] MEDS: INSULIN REGULAR DRIP 100 ML IV SCH (19:50)
[2016-09-20 19:58] LABS: CKMB % 5.7 %
[2016-09-20 20:02] LABS: Troponin I Only 2.72 NG/ML (0.00-0.045)
[2016-09-20] MEDS: CHLORHEXIDINE 0.12% ORAL RINSE 60 ML BOTTLE SWISH/SPIT SCH (20:02)
[2016-09-20 22:13] LABS: ABG Base Excess 0.9 MMOL/L (-2.5-2.5); ABG HCO3 25.2 MMOL/L (20-26); ABG Oxygen Saturation 93.8 % (95-100); ABG PCO2 37.2 MM HG (35-48); ABG PH 7.434 (7.35-7.45); ABG PO2 68.6 MM HG (80-95); ABG TCO2 21.9 MMOL/L (23-27); Glucose Heart Surgery 190 MG/DL (74-106); Hematocrit Heart Surgery 38.2 PERCENT (42-52); Hemoglobin Heart Surgery 12.4 G/DL (14.0-18.0); Potassium Heart/CVR 3.9 MMOL/L (3.5-5.1)
[2016-09-21] MEDS: chlordiazePOXIDE 25 MG CAPSULE PO SCH ×4 (00:02→17:29)
[2016-09-21] MEDS: MORPHINE 2 MG/1 ML SYRINGE IV PRN (02:17)
[2016-09-21 02:22] LABS: ABG Base Excess 2.6 MMOL/L (-2.5-2.5); ABG HCO3 25.5 MMOL/L (20-26); ABG Oxygen Saturation 93.5 % (95-100); ABG PCO2 33.9 MM HG (35-48); ABG PH 7.495 (7.35-7.45); ABG PO2 68.9 MM HG (80-95); ABG TCO2 26.6 MMOL/L (23-27); Glucose Heart Surgery 130 MG/DL (74-106); Hemoglobin Heart Surgery 12.9 G/DL (14.0-18.0); Potassium Heart/CVR 3.8 MMOL/L (3.5-5.1)
[2016-09-21 02:26] LABS: Basophils % 0.1 % (0.0-0.8); Hematocrit 33.4 VOL% (42.0-52.0); Immature Granulocytes % 0.4 %; Immature Granulocytes Absolute 0.06 #; Lymphocytes # 0.7 10*3/uL (1.4-4.0); Lymphocytes % 5.1 % (21.2-54.2); Mean Corpuscular HGB Conc 35.9 GM/DL (32-36); Mean Corpuscular Hemoglobin 35 PG (27-34); Mean Corpuscular Volume 96.8 FL (87-102); Mean Platelet Volume 9.9 FL (9.6-12.0); Monocytes # 0.6 10*3/uL (0.11-0.8); Monocytes % 4.4 % (1.7-12.7); Neutrophils # 12.2 10*3/uL (1.4-7.4); Platelet Count 166 10*3/uL (130-400); Red Blood Count 3.45 10*6/uL (3.8-5.5); Red Cell Distribution Width 11.6 % (9.3-17.3); White Blood Count 13.5 10*3/uL (4.5-13.71)
[2016-09-21 03:16] LABS: Albumin 3.2 G/DL (3.4-5.0); Bilirubin,Direct 0.4 MG/DL (0.0-0.20); Bilirubin,Total 1.1 MG/DL (0.2-1.0); Calcium 7.8 MG/DL (8.5-10.1); Osmolality,Calculated 286.1 MOS/KG (273-304); Total Protein 5.9 G/DL (6.4-8.3)
[2016-09-21] MEDS: INSULIN REGULAR 100 UNIT/ML SUBCUT SCH ×4 (03:51→14:37)
[2016-09-21] MEDS: POTASSIUM CHLORIDE RIDER 20 MEQ in PREMIX 1 EACH IV PRN ×2 (03:54→06:51)
[2016-09-21] MEDS: POTASSIUM CHLORIDE RIDER 10 MEQ in PREMIX 1 EACH IV PRN (04:25)
[2016-09-21 04:48] LABS: CKMB % 3.9 %; Troponin I Only 2.16 NG/ML (0.00-0.045)
[2016-09-21] MEDS: KETOROLAC 30 MG/1 ML VIAL IV SCH ×6 (05:57→21:43)
[2016-09-21] MEDS: CEFUROXIME INJ 1,500 MG in SODIUM CHLORIDE 0.9% 100 ML IV SCH (05:58)
[2016-09-21 06:03] LABS: ABG Base Excess 1.8 MMOL/L (-2.5-2.5); ABG HCO3 25.9 MMOL/L (20-26); ABG Oxygen Saturation 93.6 % (95-100); ABG PCO2 40.3 MM HG (35-48); ABG PH 7.422 (7.35-7.45); ABG PO2 68.3 MM HG (80-95); ABG TCO2 23.3 MMOL/L (23-27); Glucose Heart Surgery 159 MG/DL (74-106); Hematocrit Heart Surgery 36.5 PERCENT (42-52); Hemoglobin Heart Surgery 11.9 G/DL (14.0-18.0)
--- NOTE | 2016-09-21 07:45 | Cardiology Progress Note ---
Assessment and Plan (1) CAD (coronary artery disease) Problem details: Received bare metal stent placement to proximal left anterior descending artery 06/25/07. Status: Acute Current Visit: Yes (2) Chest pain Status: Acute Current Visit: Yes (3) COPD (chronic obstructive pulmonary disease) Status: Chronic Current Visit: Yes (4) GERD (gastroesophageal reflux disease) Status: Chronic Current Visit: Yes (5) Hypertension Status: Chronic Current Visit: Yes (6) Stable angina Status: Acute Current Visit: Yes (7) Former smoker Problem details: Quit 4 years ago. Status: Chronic Current Visit: Yes (8) Status post placement of bare metal coronary artery stent Problem details: Received bare metal stent placement to proximal left anterior descending artery 06/25/07. Status: Chronic Current Visit: Yes Cardiology - PN: Subj Interval history: Cardiology note Postop day #1 two-vessel CABG with LIRA graft to LAD and vein graft to PDA. Preop EF 60%. Awake and alert and responsive. Telemetry shows steady sinus rhythm in the 90s Blood pressure 120/76 O2 sat 95% on 2 L 375 cc chest tube output today Decreased breath sounds few rhonchi Regular rhythm with squeaky rub Trace leg edema Abdomen soft nontender Lab data today White count 13.5 hemoglobin 12.0 hematocrit 33.4 Sodium 142 potassium 4.0 chloride 107 CO2 26 BUN 19 creatinine 0.90 Glucose 128 magnesium 2.0 Peak troponin 2.7 Impression Postop day 1 two-vessel CABG with normal preop via Chronic hypertension Hypercholesterolemia History of EtOH abuse Obesity Status post LAD stent June 2007 History of angioedema with lisinopril Plan Chest tube out soon Restart metoprolol 25 mg daily Exam (Progress Note) - Constitutional Vitals: Period Temp Pulse Resp BP Sys/Judge Pulse Ox Last 24 Hr 97.7 F-99.0 F 84-97 10-25 83-138/55-83 92-99 Result/EKG - Labs CBC & BMP: 09/21/16 02:10 09/21/16 02:10 Labs: Laboratory Results - last 24 hr 09/19/16 09/20/16 09/20/16 10:05 08:40 09:10 WBC RBC Hgb Hct MCV MCH MCHC RDW Plt Count MPV Neut % (Auto) Lymph % (Auto) [place] % (Auto) Eos % (Auto) Baso % (Auto) Neut # (Auto) Lymph # (Auto) [place] # (Auto) Eos # (Auto) Baso # (Auto) Immature Gran % Nucleated RBC % Immature Gran # Nucleated RBCs # INR PT Patient/Control Mix Circ Anticoag PTT Patient Temperature 35 36 ABG pH ABG pH at Pt Temp 7.438 7.421 ABG pCO2 ABG pCO2 at Pt Temp 38.5 40.9 ABG pO2 ABG pO2 at Pt Temp 33.2 35.3 ABG HCO3 ABG Total CO2 ABG O2 Saturation ABG Base Excess ABG Sodium 130 L 132 L VBG pH 7.409 7.407 VBG pCO2 42.4 42.9 VBG pO2 38.2 37.8 VBG HCO3 25.7 25.8 VBG Total CO2 24.8 24.7 VBG O2 Saturation 71.0 69.9 VBG Base Excess 2.0 2.1 Hemoglobin 9.1 L D 10.2 L Hematocrit 28.2 L 31.6 L Potassium 3.6 3.8 Glucose 307 H 234 H Ionized Calcium FiO2 80.00 80.00 Sodium Chloride Carbon Dioxide Anion Gap BUN Creatinine GFR Calculation BUN/Creatinine Ratio Calculated Osmolality Calcium Venous Ioniz Calcium 0.98 L 1.04 L Magnesium Total Bilirubin Direct Bilirubin AST ALT Alkaline Phosphatase Total Creatine Kinase CK-MB (CK-2) CK and CKMB Interp Troponin I Total Protein Albumin Globulin Albumin/Globulin Ratio Blood Type O POSITIVE Antibody Screen Negative Crossmatch See Detail 09/20/16 09/20/16 09/20/16 09:39 09:39 10:50 WBC 8.1 D RBC 3.45 L Hgb 12.0 L D Hct 33.9 L MCV 98.3 MCH 35 H MCHC 35.4 RDW 11.9 Plt Count 123 L 151 D MPV 9.8 Neut % (Auto) 76.9 H Lymph % (Auto) 13.8 L [place] % (Auto) 7.0 Eos % (Auto) 0.5 Baso % (Auto) 0.4 Neut # (Auto) 6.2 Lymph # (Auto) 1.1 L [place] # (Auto) 0.6 Eos # (Auto) 0.0 Baso # (Auto) 0.0 Immature Gran % 1.4 Nucleated RBC % 0.0 Immature Gran # 0.11 Nucleated RBCs # 0.00 INR PT Patient/Control Mix Circ Anticoag PTT Patient Temperature 37 ABG pH 7.465 H ABG pH at Pt Temp 7.465 ABG pCO2 37.1 ABG pCO2 at Pt Temp 37.1 ABG pO2 125.6 H ABG pO2 at Pt Temp 125.6 ABG HCO3 26.1 H ABG Total CO2 27.2 H ABG O2 Saturation 98.1 ABG Base Excess 2.4 ABG Sodium 133 L VBG pH VBG pCO2 VBG pO2 VBG HCO3 VBG Total CO2 VBG O2 Saturation VBG Base Excess Hemoglobin 12.1 L Hematocrit 36.0 L Potassium 3.7 Glucose 202 H Ionized Calcium 1.17 L FiO2 Sodium Chloride Carbon Dioxide Anion Gap BUN Creatinine GFR Calculation BUN/Creatinine Ratio Calculated Osmolality Calcium Venous Ioniz Calcium Magnesium Total Bilirubin Direct Bilirubin AST ALT Alkaline Phosphatase Total Creatine Kinase CK-MB (CK-2) CK and CKMB Interp Troponin I Total Protein Albumin Globulin Albumin/Globulin Ratio Blood Type Antibody Screen Crossmatch 09/20/16 09/20/16 09/20/16 10:50 10:50 10:50 WBC RBC Hgb Hct MCV MCH MCHC RDW Plt Count MPV Neut % (Auto) Lymph % (Auto) [place] % (Auto) Eos % (Auto) Baso % (Auto) Neut # (Auto) Lymph # (Auto) [place] # (Auto) Eos # (Auto) Baso # (Auto) Immature Gran % Nucleated RBC % Immature Gran # Nucleated RBCs # INR 1.4 PT Patient/Control Mix 15.2 Circ Anticoag PTT 29.1 Patient Temperature ABG pH 7.374 ABG pH at Pt Temp ABG pCO2 46.6 ABG pCO2 at Pt Temp ABG pO2 92.1 ABG pO2 at Pt Temp ABG HCO3 25.7 ABG Total CO2 24.1 ABG O2 Saturation 97.1 ABG Base Excess 1.4 ABG Sodium VBG pH VBG pCO2 VBG pO2 VBG HCO3 VBG Total CO2 VBG O2 Saturation VBG Base Excess Hemoglobin 12.1 L Hematocrit 37.3 L Potassium 3.8 3.7 Glucose 170 H 181 H Ionized Calcium FiO2 Sodium 143 Chloride 106 Carbon Dioxide 27 Anion Gap 13.8 BUN 22 H Creatinine 1.10 GFR Calculation 94 BUN/Creatinine Ratio 20.00 Calculated Osmolality 291.0 Calcium 8.3 L Venous Ioniz Calcium Magnesium 2.2 Total Bilirubin 1.90 H Direct Bilirubin AST 227 H ALT 160 H Alkaline Phosphatase 48 Total Creatine Kinase CK-MB (CK-2) CK and CKMB Interp Troponin I Total Protein 5.7 L Albumin 3.3 L Globulin 2.4 Albumin/Globulin Ratio 1.3 Blood Type Antibody Screen Crossmatch 09/20/16 09/20/16 09/20/16 10:50 11:30 12:35 WBC RBC Hgb Hct MCV MCH MCHC RDW Plt Count MPV Neut % (Auto) Lymph % (Auto) [place] % (Auto) Eos % (Auto) Baso % (Auto) Neut # (Auto) Lymph # (Auto) [place] # (Auto) Eos # (Auto) Baso # (Auto) Immature Gran % Nucleated RBC % Immature Gran # Nucleated RBCs # INR PT Patient/Control Mix Circ Anticoag PTT Patient Temperature ABG pH 7.341 L 7.352 ABG pH at Pt Temp ABG pCO2 47.7 46.6 ABG pCO2 at Pt Temp ABG pO2 87.0 74.6 L ABG pO2 at Pt Temp ABG HCO3 24.0 24.2 ABG Total CO2 23.2 23.2 ABG O2 Saturation 96.3 94.0 L ABG Base Excess -0.4 -0.1 ABG Sodium VBG pH VBG pCO2 VBG pO2 VBG HCO3 VBG Total CO2 VBG O2 Saturation VBG Base Excess Hemoglobin 11.3 L 11.6 L Hematocrit 35.0 L 35.8 L Potassium 3.9 4.2 Glucose 157 H 152 H Ionized Calcium FiO2 Sodium Chloride Carbon Dioxide Anion Gap BUN Creatinine GFR Calculation BUN/Creatinine Ratio Calculated Osmolality Calcium Venous Ioniz Calcium Magnesium Total Bilirubin Direct Bilirubin AST ALT Alkaline Phosphatase Total Creatine Kinase 160 D CK-MB (CK-2) 9.9 H D CK and CKMB Interp 6.2 Troponin I 1.500 H D Total Protein Albumin Globulin Albumin/Globulin Ratio Blood Type Antibody Screen Crossmatch 09/20/16 09/20/16 09/20/16 16:04 16:59 17:59 WBC RBC Hgb Hct MCV MCH MCHC RDW Plt Count MPV Neut % (Auto) Lymph % (Auto) [place] % (Auto) Eos % (Auto) Baso % (Auto) Neut # (Auto) Lymph # (Auto) [place] # (Auto) Eos # (Auto) Baso # (Auto) Immature Gran % Nucleated RBC % Immature Gran # Nucleated RBCs # INR PT Patient/Control Mix Circ Anticoag PTT Patient Temperature ABG pH 7.501 H 7.491 H 7.511 H ABG pH at Pt Temp ABG pCO2 30.3 L 29.7 L 26.5 L ABG pCO2 at Pt Temp ABG pO2 88.7 83.2 79.4 L ABG pO2 at Pt Temp ABG HCO3 23.2 24.8 24.0 ABG Total CO2 24.1 19.8 L 18.5 L ABG O2 Saturation 96.6 97.1 97.3 ABG Base Excess 0.8 0.4 -0.5 ABG Sodium VBG pH VBG pCO2 VBG pO2 VBG HCO3 VBG Total CO2 VBG O2 Saturation VBG Base Excess Hemoglobin 13.2 L 12.8 L 12.6 L Hematocrit 39.0 L 39.5 L 38.9 L Potassium 4.0 3.9 4.1 Glucose 189 H 221 H 236 H Ionized Calcium FiO2 Sodium Chloride Carbon Dioxide Anion Gap BUN Creatinine GFR Calculation BUN/Creatinine Ratio Calculated Osmolality Calcium Venous Ioniz Calcium Magnesium Total Bilirubin Direct Bilirubin AST ALT Alkaline Phosphatase Total Creatine Kinase CK-MB (CK-2) CK and CKMB Interp Troponin I Total Protein Albumin Globulin Albumin/Globulin Ratio Blood Type Antibody Screen Crossmatch 09/20/16 09/20/16 09/20/16 19:08 22:05 Unknown WBC RBC Hgb Hct MCV MCH MCHC RDW Plt Count MPV Neut % (Auto) Lymph % (Auto) [place] % (Auto) Eos % (Auto) Baso % (Auto) Neut # (Auto) Lymph # (Auto) [place] # (Auto) Eos # (Auto) Baso # (Auto) Immature Gran % Nucleated RBC % Immature Gran # Nucleated RBCs # INR PT Patient/Control Mix Circ Anticoag PTT Patient Temperature ABG pH 7.394 7.434 ABG pH at Pt Temp ABG pCO2 37.7 37.2 ABG pCO2 at Pt Temp ABG pO2 82.8 68.6 L ABG pO2 at Pt Temp ABG HCO3 23.1 25.2 ABG Total CO2 20.4 L 21.9 L ABG O2 Saturation 96.0 93.8 L ABG Base Excess -1.5 0.9 ABG Sodium VBG pH VBG pCO2 VBG pO2 VBG HCO3 VBG Total CO2 VBG O2 Saturation VBG Base Excess Hemoglobin 12.1 L 12.4 L Hematocrit 37.3 L 38.2 L Potassium 3.8 3.9 Glucose 247 H 190 H Ionized Calcium FiO2 Sodium Chloride Carbon Dioxide Anion Gap BUN Creatinine GFR Calculation BUN/Creatinine Ratio Calculated Osmolality Calcium Venous Ioniz Calcium Magnesium Total Bilirubin Direct Bilirubin AST ALT Alkaline Phosphatase Total Creatine Kinase 213 D CK-MB (CK-2) 12.1 H CK and CKMB Interp 5.7 Troponin I 2.720 H D Total Protein Albumin Globulin Albumin/Globulin Ratio Blood Type Antibody Screen Crossmatch 09/21/16 09/21/16 09/21/16 02:10 02:10 02:10 WBC 13.5 D RBC 3.45 L Hgb 12.0 L Hct 33.4 L MCV 96.8 MCH 35 H MCHC 35.9 RDW 11.6 Plt Count 166 MPV 9.9 Neut % (Auto) 90.0 H Lymph % (Auto) 5.1 L [place] % (Auto) 4.4 Eos % (Auto) 0.0 Baso % (Auto) 0.1 Neut # (Auto) 12.2 H Lymph # (Auto) 0.7 L [place] # (Auto) 0.6 Eos # (Auto) 0.0 Baso # (Auto) 0.0 Immature Gran % 0.4 Nucleated RBC % 0.0 Immature Gran # 0.06 Nucleated RBCs # 0.00 INR PT Patient/Control Mix Circ Anticoag PTT Patient Temperature ABG pH ABG pH at Pt Temp ABG pCO2 ABG pCO2 at Pt Temp ABG pO2 ABG pO2 at Pt Temp ABG HCO3 ABG Total CO2 ABG O2 Saturation ABG Base Excess ABG Sodium VBG pH VBG pCO2 VBG pO2 VBG HCO3 VBG Total CO2 VBG O2 Saturation VBG Base Excess Hemoglobin Hematocrit Potassium 4.0 Glucose 128 H Ionized Calcium FiO2 Sodium 142 Chloride 107 Carbon Dioxide 26 Anion Gap 13.0 BUN 19 H Creatinine 0.90 GFR Calculation 120 BUN/Creatinine Ratio 21.00 H Calculated Osmolality 286.1 Calcium 7.8 L Venous Ioniz Calcium Magnesium 2.0 Total Bilirubin 1.10 H Direct Bilirubin 0.4 H AST 136 H ALT 147 H Alkaline Phosphatase 49 Total Creatine Kinase 242 CK-MB (CK-2) 9.4 H CK and CKMB Interp 3.9 Troponin I 2.160 H D Total Protein 5.9 L Albumin 3.2 L Globulin 2.7 Albumin/Globulin Ratio 1.1 Blood Type Antibody Screen Crossmatch 09/21/16 09/21/16 02:10 05:50 WBC RBC Hgb Hct MCV MCH MCHC RDW Plt Count MPV Neut % (Auto) Lymph % (Auto) [place] % (Auto) Eos % (Auto) Baso % (Auto) Neut # (Auto) Lymph # (Auto) [place] # (Auto) Eos # (Auto) Baso # (Auto) Immature Gran % Nucleated RBC % Immature Gran # Nucleated RBCs # INR PT Patient/Control Mix Circ Anticoag PTT Patient Temperature ABG pH 7.495 H 7.422 ABG pH at Pt Temp ABG pCO2 33.9 L 40.3 ABG pCO2 at Pt Temp ABG pO2 68.9 L 68.3 L ABG pO2 at Pt Temp ABG HCO3 25.5 25.9 ABG Total CO2 26.6 23.3 ABG O2 Saturation 93.5 L 93.6 L ABG Base Excess 2.6 H 1.8 ABG Sodium VBG pH VBG pCO2 VBG pO2 VBG HCO3 VBG Total CO2 VBG O2 Saturation VBG Base Excess Hemoglobin 12.9 L 11.9 L Hematocrit 38.0 L 36.5 L Potassium 3.8 4.0 Glucose 130 H 159 H Ionized Calcium FiO2 Sodium Chloride Carbon Dioxide Anion Gap BUN Creatinine GFR Calculation BUN/Creatinine Ratio Calculated Osmolality Calcium Venous Ioniz Calcium Magnesium Total Bilirubin Direct Bilirubin AST ALT Alkaline Phosphatase Total Creatine Kinase CK-MB (CK-2) CK and CKMB Interp Troponin I Total Protein Albumin Globulin Albumin/Globulin Ratio Blood Type Antibody Screen Crossmatch Quality Measures - VTE Contraindication to Pharmacological VTE Prophylaxis: High Risk of Bleeding Specialty Discharge - Follow Up or Referrals - Discharge Medications No Action Losartan/Hydrochlorothiazide [Losartan-Hctz 100-12.5 mg Tab] 1 tablet PO DAILY Aspirin [Ecotrin] 325 mg PO DAILY Amlodipine Besylate 10 mg PO DAILY Metoprolol Tartrate 25 mg PO DAILY Mccoll-3S/Dha/Epa/Fish Oil [Fish Oil 1,200 mg Softgel] 1 capsule PO DAILY Magnesium Chloride [Slow Mag] 64 mg PO BID
[2016-09-21] MEDS ORDERED: METOPROLOL TARTRATE 25 MG TABLET PO ONE (08:00)
--- NOTE | 2016-09-21 08:17 | EKG Report ---
Stationary ECG Study [facility] Test Date: 09/21/2016 8:16:51 AM Pat Name: DESIREE SÁNCHEZ Department: Room: 103 Gender: M Group Exercise Instructor: GRACIELA : [id number] Requested by: Ismael Mcarthur Order Number: [id number] Reading MD: JAY GUERRA Intervals Hecker Rate: 89 P: 44 CT: 158 QRS: -5 QRSD: 97 T: 24 QT: 372 QTc: 419 Interpretive Statements SINUS RHYTHM at 89 bpm WNL Electronically Signed On 09-21-16 12:25:04 HOSPITAL EDUCATOR by JAY GUERRA [email or web address]
[2016-09-21] MEDS: CHLORHEXIDINE 0.12% ORAL RINSE 60 ML BOTTLE SWISH/SPIT SCH ×2 (08:36→10:03)
--- NOTE | 2016-09-21 08:49 | Cardiothoracic Progress Note ---
Cardiothoracic Subjective Interval history: Patient is awake alert and extubated. He had a stable night and was extubated yesterday evening. Vital signs are stable this morning and his blood gases are satisfactory postextubation. Renal output has been good and his creatinine is within normal limits. Chest tube drainage is minimal and I'm going to remove his chest tubes. Hopefully he can be transferred to telemetry later this morning. Exam (Progress Note) - Constitutional Vitals: Period Temp Pulse Resp BP Sys/Judge Pulse Ox Last 24 Hr 97.7 F-99.0 F 84-97 10-25 83-138/55-83 92-99 Result/EKG - Labs CBC & BMP: 09/21/16 02:10 09/21/16 02:10 Labs: Laboratory Results - last 24 hr 09/19/16 09/20/16 09/20/16 10:05 08:40 09:10 WBC RBC Hgb Hct MCV MCH MCHC RDW Plt Count MPV Neut % (Auto) Lymph % (Auto) [place] % (Auto) Eos % (Auto) Baso % (Auto) Neut # (Auto) Lymph # (Auto) [place] # (Auto) Eos # (Auto) Baso # (Auto) Immature Gran % Nucleated RBC % Immature Gran # Nucleated RBCs # INR PT Patient/Control Mix Circ Anticoag PTT Patient Temperature 35 36 ABG pH ABG pH at Pt Temp 7.438 7.421 ABG pCO2 ABG pCO2 at Pt Temp 38.5 40.9 ABG pO2 ABG pO2 at Pt Temp 33.2 35.3 ABG HCO3 ABG Total CO2 ABG O2 Saturation ABG Base Excess ABG Sodium 130 L 132 L VBG pH 7.409 7.407 VBG pCO2 42.4 42.9 VBG pO2 38.2 37.8 VBG HCO3 25.7 25.8 VBG Total CO2 24.8 24.7 VBG O2 Saturation 71.0 69.9 VBG Base Excess 2.0 2.1 Hemoglobin 9.1 L D 10.2 L Hematocrit 28.2 L 31.6 L Potassium 3.6 3.8 Glucose 307 H 234 H Ionized Calcium FiO2 80.00 80.00 Sodium Chloride Carbon Dioxide Anion Gap BUN Creatinine GFR Calculation BUN/Creatinine Ratio Hemoglobin A1c Calculated Osmolality Calcium Venous Ioniz Calcium 0.98 L 1.04 L Magnesium Total Bilirubin Direct Bilirubin AST ALT Alkaline Phosphatase Total Creatine Kinase CK-MB (CK-2) CK and CKMB Interp Troponin I Total Protein Albumin Globulin Albumin/Globulin Ratio Blood Type O POSITIVE Antibody Screen Negative Crossmatch See Detail 09/20/16 09/20/16 09/20/16 09:39 09:39 10:50 WBC 8.1 D RBC 3.45 L Hgb 12.0 L D Hct 33.9 L MCV 98.3 MCH 35 H MCHC 35.4 RDW 11.9 Plt Count 123 L 151 D MPV 9.8 Neut % (Auto) 76.9 H Lymph % (Auto) 13.8 L [place] % (Auto) 7.0 Eos % (Auto) 0.5 Baso % (Auto) 0.4 Neut # (Auto) 6.2 Lymph # (Auto) 1.1 L [place] # (Auto) 0.6 Eos # (Auto) 0.0 Baso # (Auto) 0.0 Immature Gran % 1.4 Nucleated RBC % 0.0 Immature Gran # 0.11 Nucleated RBCs # 0.00 INR PT Patient/Control Mix Circ Anticoag PTT Patient Temperature 37 ABG pH 7.465 H ABG pH at Pt Temp 7.465 ABG pCO2 37.1 ABG pCO2 at Pt Temp 37.1 ABG pO2 125.6 H ABG pO2 at Pt Temp 125.6 ABG HCO3 26.1 H ABG Total CO2 27.2 H ABG O2 Saturation 98.1 ABG Base Excess 2.4 ABG Sodium 133 L VBG pH VBG pCO2 VBG pO2 VBG HCO3 VBG Total CO2 VBG O2 Saturation VBG Base Excess Hemoglobin 12.1 L Hematocrit 36.0 L Potassium 3.7 Glucose 202 H Ionized Calcium 1.17 L FiO2 Sodium Chloride Carbon Dioxide Anion Gap BUN Creatinine GFR Calculation BUN/Creatinine Ratio Hemoglobin A1c Calculated Osmolality Calcium Venous Ioniz Calcium Magnesium Total Bilirubin Direct Bilirubin AST ALT Alkaline Phosphatase Total Creatine Kinase CK-MB (CK-2) CK and CKMB Interp Troponin I Total Protein Albumin Globulin Albumin/Globulin Ratio Blood Type Antibody Screen Crossmatch 09/20/16 09/20/16 09/20/16 10:50 10:50 10:50 WBC RBC Hgb Hct MCV MCH MCHC RDW Plt Count MPV Neut % (Auto) Lymph % (Auto) [place] % (Auto) Eos % (Auto) Baso % (Auto) Neut # (Auto) Lymph # (Auto) [place] # (Auto) Eos # (Auto) Baso # (Auto) Immature Gran % Nucleated RBC % Immature Gran # Nucleated RBCs # INR 1.4 PT Patient/Control Mix 15.2 Circ Anticoag PTT 29.1 Patient Temperature ABG pH 7.374 ABG pH at Pt Temp ABG pCO2 46.6 ABG pCO2 at Pt Temp ABG pO2 92.1 ABG pO2 at Pt Temp ABG HCO3 25.7 ABG Total CO2 24.1 ABG O2 Saturation 97.1 ABG Base Excess 1.4 ABG Sodium VBG pH VBG pCO2 VBG pO2 VBG HCO3 VBG Total CO2 VBG O2 Saturation VBG Base Excess Hemoglobin 12.1 L Hematocrit 37.3 L Potassium 3.8 3.7 Glucose 170 H 181 H Ionized Calcium FiO2 Sodium 143 Chloride 106 Carbon Dioxide 27 Anion Gap 13.8 BUN 22 H Creatinine 1.10 GFR Calculation 94 BUN/Creatinine Ratio 20.00 Hemoglobin A1c Calculated Osmolality 291.0 Calcium 8.3 L Venous Ioniz Calcium Magnesium 2.2 Total Bilirubin 1.90 H Direct Bilirubin AST 227 H ALT 160 H Alkaline Phosphatase 48 Total Creatine Kinase CK-MB (CK-2) CK and CKMB Interp Troponin I Total Protein 5.7 L Albumin 3.3 L Globulin 2.4 Albumin/Globulin Ratio 1.3 Blood Type Antibody Screen Crossmatch 09/20/16 09/20/16 09/20/16 10:50 11:30 12:35 WBC RBC Hgb Hct MCV MCH MCHC RDW Plt Count MPV Neut % (Auto) Lymph % (Auto) [place] % (Auto) Eos % (Auto) Baso % (Auto) Neut # (Auto) Lymph # (Auto) [place] # (Auto) Eos # (Auto) Baso # (Auto) Immature Gran % Nucleated RBC % Immature Gran # Nucleated RBCs # INR PT Patient/Control Mix Circ Anticoag PTT Patient Temperature ABG pH 7.341 L 7.352 ABG pH at Pt Temp ABG pCO2 47.7 46.6 ABG pCO2 at Pt Temp ABG pO2 87.0 74.6 L ABG pO2 at Pt Temp ABG HCO3 24.0 24.2 ABG Total CO2 23.2 23.2 ABG O2 Saturation 96.3 94.0 L ABG Base Excess -0.4 -0.1 ABG Sodium VBG pH VBG pCO2 VBG pO2 VBG HCO3 VBG Total CO2 VBG O2 Saturation VBG Base Excess Hemoglobin 11.3 L 11.6 L Hematocrit 35.0 L 35.8 L Potassium 3.9 4.2 Glucose 157 H 152 H Ionized Calcium FiO2 Sodium Chloride Carbon Dioxide Anion Gap BUN Creatinine GFR Calculation BUN/Creatinine Ratio Hemoglobin A1c Calculated Osmolality Calcium Venous Ioniz Calcium Magnesium Total Bilirubin Direct Bilirubin AST ALT Alkaline Phosphatase Total Creatine Kinase 160 D CK-MB (CK-2) 9.9 H D CK and CKMB Interp 6.2 Troponin I 1.500 H D Total Protein Albumin Globulin Albumin/Globulin Ratio Blood Type Antibody Screen Crossmatch 09/20/16 09/20/16 09/20/16 16:04 16:59 17:59 WBC RBC Hgb Hct MCV MCH MCHC RDW Plt Count MPV Neut % (Auto) Lymph % (Auto) [place] % (Auto) Eos % (Auto) Baso % (Auto) Neut # (Auto) Lymph # (Auto) [place] # (Auto) Eos # (Auto) Baso # (Auto) Immature Gran % Nucleated RBC % Immature Gran # Nucleated RBCs # INR PT Patient/Control Mix Circ Anticoag PTT Patient Temperature ABG pH 7.501 H 7.491 H 7.511 H ABG pH at Pt Temp ABG pCO2 30.3 L 29.7 L 26.5 L ABG pCO2 at Pt Temp ABG pO2 88.7 83.2 79.4 L ABG pO2 at Pt Temp ABG HCO3 23.2 24.8 24.0 ABG Total CO2 24.1 19.8 L 18.5 L ABG O2 Saturation 96.6 97.1 97.3 ABG Base Excess 0.8 0.4 -0.5 ABG Sodium VBG pH VBG pCO2 VBG pO2 VBG HCO3 VBG Total CO2 VBG O2 Saturation VBG Base Excess Hemoglobin 13.2 L 12.8 L 12.6 L Hematocrit 39.0 L 39.5 L 38.9 L Potassium 4.0 3.9 4.1 Glucose 189 H 221 H 236 H Ionized Calcium FiO2 Sodium Chloride Carbon Dioxide Anion Gap BUN Creatinine GFR Calculation BUN/Creatinine Ratio Hemoglobin A1c Calculated Osmolality Calcium Venous Ioniz Calcium Magnesium Total Bilirubin Direct Bilirubin AST ALT Alkaline Phosphatase Total Creatine Kinase CK-MB (CK-2) CK and CKMB Interp Troponin I Total Protein Albumin Globulin Albumin/Globulin Ratio Blood Type Antibody Screen Crossmatch 09/20/16 09/20/16 09/20/16 19:08 22:05 Unknown WBC RBC Hgb Hct MCV MCH MCHC RDW Plt Count MPV Neut % (Auto) Lymph % (Auto) [place] % (Auto) Eos % (Auto) Baso % (Auto) Neut # (Auto) Lymph # (Auto) [place] # (Auto) Eos # (Auto) Baso # (Auto) Immature Gran % Nucleated RBC % Immature Gran # Nucleated RBCs # INR PT Patient/Control Mix Circ Anticoag PTT Patient Temperature ABG pH 7.394 7.434 ABG pH at Pt Temp ABG pCO2 37.7 37.2 ABG pCO2 at Pt Temp ABG pO2 82.8 68.6 L ABG pO2 at Pt Temp ABG HCO3 23.1 25.2 ABG Total CO2 20.4 L 21.9 L ABG O2 Saturation 96.0 93.8 L ABG Base Excess -1.5 0.9 ABG Sodium VBG pH VBG pCO2 VBG pO2 VBG HCO3 VBG Total CO2 VBG O2 Saturation VBG Base Excess Hemoglobin 12.1 L 12.4 L Hematocrit 37.3 L 38.2 L Potassium 3.8 3.9 Glucose 247 H 190 H Ionized Calcium FiO2 Sodium Chloride Carbon Dioxide Anion Gap BUN Creatinine GFR Calculation BUN/Creatinine Ratio Hemoglobin A1c Calculated Osmolality Calcium Venous Ioniz Calcium Magnesium Total Bilirubin Direct Bilirubin AST ALT Alkaline Phosphatase Total Creatine Kinase 213 D CK-MB (CK-2) 12.1 H CK and CKMB Interp 5.7 Troponin I 2.720 H D Total Protein Albumin Globulin Albumin/Globulin Ratio Blood Type Antibody Screen Crossmatch 09/21/16 09/21/16 09/21/16 02:10 02:10 02:10 WBC 13.5 D RBC 3.45 L Hgb 12.0 L Hct 33.4 L MCV 96.8 MCH 35 H MCHC 35.9 RDW 11.6 Plt Count 166 MPV 9.9 Neut % (Auto) 90.0 H Lymph % (Auto) 5.1 L [place] % (Auto) 4.4 Eos % (Auto) 0.0 Baso % (Auto) 0.1 Neut # (Auto) 12.2 H Lymph # (Auto) 0.7 L [place] # (Auto) 0.6 Eos # (Auto) 0.0 Baso # (Auto) 0.0 Immature Gran % 0.4 Nucleated RBC % 0.0 Immature Gran # 0.06 Nucleated RBCs # 0.00 INR PT Patient/Control Mix Circ Anticoag PTT Patient Temperature ABG pH ABG pH at Pt Temp ABG pCO2 ABG pCO2 at Pt Temp ABG pO2 ABG pO2 at Pt Temp ABG HCO3 ABG Total CO2 ABG O2 Saturation ABG Base Excess ABG Sodium VBG pH VBG pCO2 VBG pO2 VBG HCO3 VBG Total CO2 VBG O2 Saturation VBG Base Excess Hemoglobin Hematocrit Potassium 4.0 Glucose 128 H Ionized Calcium FiO2 Sodium 142 Chloride 107 Carbon Dioxide 26 Anion Gap 13.0 BUN 19 H Creatinine 0.90 GFR Calculation 120 BUN/Creatinine Ratio 21.00 H Hemoglobin A1c Calculated Osmolality 286.1 Calcium 7.8 L Venous Ioniz Calcium Magnesium 2.0 Total Bilirubin 1.10 H Direct Bilirubin 0.4 H AST 136 H ALT 147 H Alkaline Phosphatase 49 Total Creatine Kinase 242 CK-MB (CK-2) 9.4 H CK and CKMB Interp 3.9 Troponin I 2.160 H D Total Protein 5.9 L Albumin 3.2 L Globulin 2.7 Albumin/Globulin Ratio 1.1 Blood Type Antibody Screen Crossmatch 09/21/16 09/21/16 09/21/16 02:10 02:10 05:50 WBC RBC Hgb Hct MCV MCH MCHC RDW Plt Count MPV Neut % (Auto) Lymph % (Auto) [place] % (Auto) Eos % (Auto) Baso % (Auto) Neut # (Auto) Lymph # (Auto) [place] # (Auto) Eos # (Auto) Baso # (Auto) Immature Gran % Nucleated RBC % Immature Gran # Nucleated RBCs # INR PT Patient/Control Mix Circ Anticoag PTT Patient Temperature ABG pH 7.495 H 7.422 ABG pH at Pt Temp ABG pCO2 33.9 L 40.3 ABG pCO2 at Pt Temp ABG pO2 68.9 L 68.3 L ABG pO2 at Pt Temp ABG HCO3 25.5 25.9 ABG Total CO2 26.6 23.3 ABG O2 Saturation 93.5 L 93.6 L ABG Base Excess 2.6 H 1.8 ABG Sodium VBG pH VBG pCO2 VBG pO2 VBG HCO3 VBG Total CO2 VBG O2 Saturation VBG Base Excess Hemoglobin 12.9 L 11.9 L Hematocrit 38.0 L 36.5 L Potassium 3.8 4.0 Glucose 130 H 159 H Ionized Calcium FiO2 Sodium Chloride Carbon Dioxide Anion Gap BUN Creatinine GFR Calculation BUN/Creatinine Ratio Hemoglobin A1c 5.8 Calculated Osmolality Calcium Venous Ioniz Calcium Magnesium Total Bilirubin Direct Bilirubin AST ALT Alkaline Phosphatase Total Creatine Kinase CK-MB (CK-2) CK and CKMB Interp Troponin I Total Protein Albumin Globulin Albumin/Globulin Ratio Blood Type Antibody Screen Crossmatch Quality Measures - VTE Contraindication to Pharmacological VTE Prophylaxis: High Risk of Bleeding Specialty Discharge - Follow Up or Referrals - Discharge Medications No Action Losartan/Hydrochlorothiazide [Losartan-Hctz 100-12.5 mg Tab] 1 tablet PO DAILY Aspirin [Ecotrin] 325 mg PO DAILY Amlodipine Besylate 10 mg PO DAILY Metoprolol Tartrate 25 mg PO DAILY [place]-3S/Dha/Epa/Fish Oil [Fish Oil 1,200 mg Softgel] 1 capsule PO DAILY Magnesium Chloride [Slow Mag] 64 mg PO BID
[2016-09-21] MEDS ORDERED: POTASSIUM CHLORIDE 20 MEQ TABLET PO PRN (08:54)
[2016-09-21] MEDS ORDERED: DEXTROSE 50% 25 GM/50 ML VIAL IV PRN (08:54)
[2016-09-21] MEDS ORDERED: ONDANSETRON 4 MG/2 ML VIAL IV PRN (08:54)
[2016-09-21] MEDS ORDERED: GLUCAGON 1 MG VIAL IM PRN (08:54)
[2016-09-21] MEDS ORDERED: MAGNESIUM SULF RIDER 2 GM in PREMIX 1 EACH IV PRN (08:54)
[2016-09-21] MEDS ORDERED: ACETAMINOPHEN 325 MG TABLET PO PRN (08:54)
[2016-09-21] MEDS ORDERED: MAGNESIUM SULF RIDER 4 GM in PREMIX 1 EACH IV PRN (08:54)
[2016-09-21] MEDS ORDERED: ZALEPLON 5 MG CAPSULE PO PRN (08:54)
[2016-09-21] MEDS ORDERED: MAGNESIUM HYDROXIDE SUSP 30 ML UDCUP PO PRN (08:54)
[2016-09-21] MEDS ORDERED: ALUMINUM/MAGNES/SIMETH MAX STR 30 ML UDCUP PO PRN (08:54)
[2016-09-21] MEDS ORDERED: ASPIRIN EC 325 MG TABLET PO SCH (09:00)
[2016-09-21] MEDS: oxyCODONE/ACETAMINOPHEN 5-325 MG TABLET PO PRN ×3 (10:02→21:42)
[2016-09-21] MEDS: DOCUSATE SODIUM 100 MG CAPSULE PO SCH (10:02)
[2016-09-21] MEDS: PANTOPRAZOLE 40 MG TABLET PO SCH (10:03)
[2016-09-21] MEDS: FERROUS SULFATE 325 MG TABLET PO SCH (10:09)
[2016-09-21 11:59] LABS: CKMB % 2.6 %
[2016-09-21 12:01] LABS: Troponin I Only 1.11 NG/ML (0.00-0.045)
--- NOTE | 2016-09-21 12:24 | Anesthesia ---
Anesthesia Post OP - Post Ansesthetic Evaluation Patient seen in post op: Yes Resp: within normal limits CV: within normal limits Mental: within normal limits Temp: within normal limits [id number]: within normal limits Nausea and Vomiting: within normal limits Pain: within normal limits
--- NOTE | 2016-09-21 12:42 | XRay Report ---
Exam: XR chest 1V portable Indication: Chest tube removal, extubated Comparison study: 09/20/16 Findings: Cardiac silhouette is mildly enlarged, stable from prior. Left-sided central venous catheter is in similar position. The endotracheal tube and esophagogastric tubes have been removed. The mediastinal drains have been removed. There is no evidence of pneumothorax following chest tube removal. Minimal perihilar and basilar interstitial opacities likely represent atelectasis. Impression: No pneumothorax following mediastinal chest tube removal. Perihilar and basilar interstitial opacities likely represent atelectasis. Stable mild cardiomegaly and position of the left-sided central venous catheter. PROCEDURE INTERPRETED AT [facility] DEPARTMENT OF RADIOLOGY Final Report Signed by: Gopal Real
[2016-09-21] MEDS: SODIUM CHLORIDE 0.45% 1,000 ML IV SCH ×2 (13:40→13:45)
[2016-09-21] MEDS: INSULIN REGULAR DRIP 100 ML IV SCH (13:41)
[2016-09-21] MEDS: SODIUM CHLOR 0.45% KCL 20 MEQ 20 MEQ/1,000 ML BAG IV SCH (13:46)
[2016-09-21] MEDS: ASPIRIN EC 325 MG TABLET PO SCH (15:11)
[2016-09-21] MEDS: METOPROLOL TARTRATE 25 MG TABLET PO SCH (15:36)
[2016-09-21] MEDS: LOSARTAN 50 MG TABLET PO SCH (15:36)
[2016-09-21] MEDS: MAGNESIUM CHLORIDE 64 MG TABLET PO SCH ×2 (15:36→21:42)
[2016-09-21] MEDS: hydroCHLOROthiazide 12.5 MG CAPSULE PO SCH (15:36)
[2016-09-21] MEDS: OMEGA 3 ACID ETHYL ESTERS 1 GM CAPSULE PO SCH (15:36)
[2016-09-21] MEDS: amLODIPine 10 MG TABLET PO SCH (15:37)
--- NOTE | 2016-09-21 18:35 | Hospitalist Consult Note ---
Assessment and Plan - Time spent with patient Time spent with patient: Greater than 30 minutes (due to assessment, plan and doc) (1) S/P CABG x 2 Status: Acute Current Visit: Yes (2) CAD (coronary artery disease) Problem details: Received bare metal stent placement to proximal left anterior descending artery 06/25/07. Status: Acute Current Visit: Yes (3) Former smoker Problem details: Quit 4 years ago. Status: Chronic Current Visit: Yes (4) GERD (gastroesophageal reflux disease) Status: Chronic Current Visit: Yes (5) Hypertension Status: Chronic Current Visit: Yes History of Present Illness - Data of Consult Patient: new to practice (t) Consult date: 09/21/16 Requesting Physician: Ismael Holm - Consult Narrative Reason for consult: med mgmt History of present illness: Mr. Bolaños is a 61 year old male who we have been consulted by Dr. Holm for medical management. He is not diabetic, and he has been on medications for HTN. He states that his Blood pressure has been well controlled. He is POD #1 from CABG x2. He does state that his chest is sore, but no excessive pain. He is on no medications other than his BP meds, magnesium 64 mg, and fish oil. His labs are as to be expected s/p CABG. He states that he has not had a BM yet. He already has stool softeners orders and MOM. He is a former smoker, but hasn't smoked in 5 years per his report. He seems to be doing well post operatively with no acute needs at this time. We will continue to follow along with Dr. Holm. Further plan and addendum to follow by Dr. Daniel Trejo. CC: Erika Marshall, DO - Home Medications and Allergies Home Medications: Home Medications Medication Instructions Recorded Confirmed Type Amlodipine Besylate 10 mg PO DAILY 09/18/16 09/18/16 History Aspirin [Ecotrin] 325 mg PO DAILY 09/18/16 09/18/16 History Losartan/Hydrochlorothiazide 1 tablet PO DAILY 09/18/16 09/18/16 History [Losartan-Hctz 100-12.5 mg Tab] Magnesium Chloride [Slow Mag] 64 mg PO BID 09/18/16 09/18/16 History Metoprolol Tartrate 25 mg PO DAILY 09/18/16 09/18/16 History [place]-3S/Dha/Epa/Fish Oil [Fish 1 capsule PO DAILY 09/18/16 09/18/16 History Oil 1,200 mg Softgel] Allergies/Adverse Reactions: Allergies Allergy/AdvReac Type Severity Reaction Status Date / Time lisinopril Allergy ANAPHYLAXIS Verified 09/17/16 17:36 Medical,Surgical,& Family Hx - Medical History Cardio: History of: CAD, Hypertension, ID Endocrine: History of: Dyslipidemia Respiratory: History of: COPD - Surgical History Cardiac Surgeries: Sugical HX of: Cardiac Catheterization - Social History Smoking Status: Former smoker Frequency of Alcohol Use: Frequently Type of Drug Use: None Marital Status: Lives With:: Spouse Functional capacity: independent ambulation - Constitutional Constitutional: Absent: chills, fever(s) - EENT Eyes: Absent: blurry vision, diplopia Ears: Absent: decreased hearing, tinnitus Nose, mouth and throat: Absent: dysphagia, headache(s) - Cardiovascular Cardiovascular: Present: other (midsternal incision s/p cabg. ) - Respiratory Respiratory: Absent: cough, dyspnea, hemoptysis - Gastrointestinal Gastrointestinal: Absent: abdominal pain, melena, nausea, vomiting - Genitourinary Genitourinary: Absent: dysuria, hematuria - Musculoskeletal Musculoskeletal: Absent: arthralgias, joint swelling - Neurological Neurological: Absent: confusion, dizziness - Psychiatric Psychiatric: Absent: anxiety, confusion, depression - Endocrine Endocrine: Absent: cold intolerance, heat intolerance - Hematologic/Lymphatic Hematologic/Lymphatic: Absent: easy bleeding, easy bruising Exam - Constitutional Vitals: Period Temp Pulse Resp BP Sys/Judge Pulse Ox Last 24 Hr 97.4 F-98.6 F 75-106 12-22 84-138/43-74 92-96 General appearance: no acute distress, over weight - Head Head exam: Present: normal inspection, normocephalic - Eye Eye exam: Present: EOMI. Absent: scleral icterus Pupils: Present: BOUBACAR, normal accommodation - ENT ENT exam: Present: normal exam, normal oropharynx - Neck Neck exam: Present: normal inspection. Absent: lymphadenopathy - Respiratory Respiratory exam: Present: clear to auscultation bilaterally. Absent: accessory muscle use - Cardiovascular Cardiovascular exam: Present: regular rate and rhythm, other (midsternal incision s/p cabg). Absent: carotid bruit - GI/Abdominal GI/Abdominal exam: Present: normal bowel sounds. Absent: tenderness - Extremities Exam Extremities exam: Present: other (harvest incision). Absent: edema - Back Exam Back exam: Present: normal inspection. Absent: muscle spasm - Neurological Exam Neurological exam: Present: alert, oriented X3 - Psychiatric Psychiatric exam: Present: normal affect, normal mood - Skin Skin exam: Present: normal color, warm, dry, intact Results - Labs CBC & BMP: 09/21/16 02:10 09/21/16 02:10 Lab Results: I have reviewed the past 24 hour labs Quality Measures - VTE Contraindication to Pharmacological VTE Prophylaxis: High Risk of Bleeding Specialty Discharge - Follow Up or Referrals - Discharge Medications No Action Losartan/Hydrochlorothiazide [Losartan-Hctz 100-12.5 mg Tab] 1 tablet PO DAILY Aspirin [Ecotrin] 325 mg PO DAILY Amlodipine Besylate 10 mg PO DAILY Metoprolol Tartrate 25 mg PO DAILY [place]-3S/Dha/Epa/Fish Oil [Fish Oil 1,200 mg Softgel] 1 capsule PO DAILY Magnesium Chloride [Slow Mag] 64 mg PO BID
[2016-09-22] MEDS: chlordiazePOXIDE 25 MG CAPSULE PO SCH ×4 (00:19→17:17)
[2016-09-22] MEDS: MORPHINE 2 MG/1 ML SYRINGE IV PRN ×2 (00:19→21:46)
[2016-09-22] MEDS: CHLORHEXIDINE 0.12% ORAL RINSE 60 ML BOTTLE SWISH/SPIT SCH ×3 (00:20→20:47)
[2016-09-22 05:16] LABS: Basophils % 0.1 % (0.0-0.8); Eosinophils % 0.1 % (0.00-10.9); Hemoglobin 10.8 GM/DL (14.0-18.0); Immature Granulocytes % 0.6 %; Immature Granulocytes Absolute 0.09 #; Lymphocytes # 1.3 10*3/uL (1.4-4.0); Lymphocytes % 8.8 % (21.2-54.2); Mean Corpuscular HGB Conc 34.8 GM/DL (32-36); Mean Corpuscular Hemoglobin 34 PG (27-34); Mean Corpuscular Volume 98.7 FL (87-102); Mean Platelet Volume 10.3 FL (9.6-12.0); Monocytes # 1.3 10*3/uL (0.11-0.8); Monocytes % 8.8 % (1.7-12.7); Neutrophils # 11.8 10*3/uL (1.4-7.4); Neutrophils % 81.6 % (38.7-73.9); Platelet Count 161 10*3/uL (130-400); Red Blood Count 3.14 10*6/uL (3.8-5.5); Red Cell Distribution Width 11.8 % (9.3-17.3); White Blood Count 14.5 10*3/uL (4.5-13.71)
[2016-09-22 05:52] LABS: Alanine Aminotransferase 95 U/L (16-61); Albumin 2.9 G/DL (3.4-5.0); Alkaline Phosphatase 56 U/L (45-117); Aspartate Amino Transferase 47 U/L (0-37); Bilirubin,Direct 0.2 MG/DL (0.0-0.20); Bilirubin,Indirect 0.8 MG/DL (0.0-1.0); Blood Urea Nitrogen 22 MG/DL (7-18); Calcium 8.3 MG/DL (8.5-10.1); Glucose 121 MG/DL (74-106); Magnesium 2.3 MG/DL (1.8-2.4); Potassium 4.1 MMOL/L (3.5-5.1); Sodium 143 MMOL/L (136-145); Total Protein 5.5 G/DL (6.4-8.3)
[2016-09-22 05:54] LABS: Troponin I Only 0.647 NG/ML (0.00-0.045)
[2016-09-22] MEDS ORDERED: FUROSEMIDE 40 MG/4 ML VIAL IV ONE (06:00)
[2016-09-22] MEDS: KETOROLAC 30 MG/1 ML VIAL IV SCH ×4 (06:13→20:47)
--- NOTE | 2016-09-22 07:51 | XRay Report ---
Referring Physician: Ismael Holm Exam: XR chest 1V portable Date: September 22, 2016 at 5:25 AM Reason: Shortness of breath Comparison: Chest one view portable September 21, 2016 Findings: A left-sided central venous catheter is again present. The cardiac silhouette is again mildly enlarged, and the patient is status post sternotomy. The lungs are poorly expanded, and there are minimal bibasilar opacities which are favored to represent atelectasis. No pneumothorax is identified, but there may be minimal left pleural fluid. The osseous structures appear stable. Impression: The lungs are less expanded today, but the study is otherwise similar to before. PROCEDURE INTERPRETED AT [facility] DEPARTMENT OF RADIOLOGY Final Report Signed by: Dr. Becca Salvador
--- NOTE | 2016-09-22 08:27 | Cardiology Progress Note ---
Assessment and Plan (1) CAD (coronary artery disease) Problem details: Received bare metal stent placement to proximal left anterior descending artery 06/25/07. Status: Acute Current Visit: Yes (2) Chest pain Status: Acute Current Visit: Yes (3) COPD (chronic obstructive pulmonary disease) Status: Chronic Current Visit: Yes (4) GERD (gastroesophageal reflux disease) Status: Chronic Current Visit: Yes (5) Hypertension Status: Chronic Current Visit: Yes (6) Stable angina Status: Acute Current Visit: Yes (7) Former smoker Problem details: Quit 4 years ago. Status: Chronic Current Visit: Yes (8) Status post placement of bare metal coronary artery stent Problem details: Received bare metal stent placement to proximal left anterior descending artery 06/25/07. Status: Chronic Current Visit: Yes Cardiology - PN: Subj Interval history: Cardiology note Postop day #2 two-vessel CABG with LIRA graft to LAD and vein graft to PDA with EF 60% Doing well. Appetite good. Telemetry shows steady sinus rhythm. Blood pressure 124/80 in the right arm by me Had BM today. Decreased breath sounds but clear Regular rhythm no gallop Incision looks good Lab data today White count 14.5 hemoglobin 10.8 hematocrit 31.0 Sodium 143 potassium 4.1 chloride 107 CO2 29 BUN 22 creatinine 0.80 Glucose 116 magnesium 2.3 Impression Postop day 2, two-vessel CABG with preop EF 60% Chronic hypertension Hypercholesteremia History of EtOH abuse Status post LAD stent 2006 Obesity Plan Encourage spirometry Ambulate and monitor BP meds as needed Exam (Progress Note) - Constitutional Vitals: Period Temp Pulse Resp BP Sys/Judge Pulse Ox Last 24 Hr 97.4 F-98.5 F 75-106 12-22 84-127/43-87 90-96 Result/EKG - Labs CBC & BMP: 09/22/16 04:17 09/22/16 04:17 Labs: Laboratory Results - last 24 hr 09/21/16 09/21/16 09/21/16 11:15 16:04 19:39 WBC RBC Hgb Hct MCV MCH MCHC RDW Plt Count MPV Neut % (Auto) Lymph % (Auto) [place] % (Auto) Eos % (Auto) Baso % (Auto) Neut # (Auto) Lymph # (Auto) [place] # (Auto) Eos # (Auto) Baso # (Auto) Immature Gran % Nucleated RBC % Immature Gran # Nucleated RBCs # Sodium Potassium Chloride Carbon Dioxide Anion Gap BUN Creatinine GFR Calculation BUN/Creatinine Ratio Glucose POC Glucose 160 H 327 H Calculated Osmolality Calcium Magnesium Total Bilirubin Direct Bilirubin Indirect Bilirubin AST ALT Alkaline Phosphatase Total Creatine Kinase 215 CK-MB (CK-2) 5.6 H CK and CKMB Interp 2.6 Troponin I 1.110 H D Total Protein Albumin Globulin Albumin/Globulin Ratio 09/22/16 09/22/16 09/22/16 02:17 04:17 04:17 WBC 14.5 H RBC 3.14 L Hgb 10.8 L Hct 31.0 L MCV 98.7 MCH 34 MCHC 34.8 RDW 11.8 Plt Count 161 MPV 10.3 Neut % (Auto) 81.6 H Lymph % (Auto) 8.8 L [place] % (Auto) 8.8 Eos % (Auto) 0.1 Baso % (Auto) 0.1 Neut # (Auto) 11.8 H Lymph # (Auto) 1.3 L [place] # (Auto) 1.3 H Eos # (Auto) 0.0 Baso # (Auto) 0.0 Immature Gran % 0.6 Nucleated RBC % 0.0 Immature Gran # 0.09 Nucleated RBCs # 0.00 Sodium 143 Potassium 4.1 Chloride 107 Carbon Dioxide 29 Anion Gap 11.1 BUN 22 H Creatinine 0.80 GFR Calculation 127 BUN/Creatinine Ratio 27.00 H Glucose 121 H POC Glucose 171 H Calculated Osmolality 288.0 Calcium 8.3 L Magnesium 2.3 Total Bilirubin 1.00 Direct Bilirubin 0.2 Indirect Bilirubin 0.8 AST 47 H ALT 95 H Alkaline Phosphatase 56 Total Creatine Kinase 160 D CK-MB (CK-2) 2.1 CK and CKMB Interp Troponin I 0.647 H D Total Protein 5.5 L Albumin 2.9 L Globulin 2.6 Albumin/Globulin Ratio 1.1 09/22/16 09/22/16 04:48 07:15 WBC RBC Hgb Hct MCV MCH MCHC RDW Plt Count MPV Neut % (Auto) Lymph % (Auto) [place] % (Auto) Eos % (Auto) Baso % (Auto) Neut # (Auto) Lymph # (Auto) [place] # (Auto) Eos # (Auto) Baso # (Auto) Immature Gran % Nucleated RBC % Immature Gran # Nucleated RBCs # Sodium Potassium Chloride Carbon Dioxide Anion Gap BUN Creatinine GFR Calculation BUN/Creatinine Ratio Glucose POC Glucose 133 H 116 H Calculated Osmolality Calcium Magnesium Total Bilirubin Direct Bilirubin Indirect Bilirubin AST ALT Alkaline Phosphatase Total Creatine Kinase CK-MB (CK-2) CK and CKMB Interp Troponin I Total Protein Albumin Globulin Albumin/Globulin Ratio Quality Measures - VTE Contraindication to Pharmacological VTE Prophylaxis: High Risk of Bleeding Specialty Discharge - Follow Up or Referrals - Discharge Medications No Action Losartan/Hydrochlorothiazide [Losartan-Hctz 100-12.5 mg Tab] 1 tablet PO DAILY Aspirin [Ecotrin] 325 mg PO DAILY Amlodipine Besylate 10 mg PO DAILY Metoprolol Tartrate 25 mg PO DAILY [place]-3S/Dha/Epa/Fish Oil [Fish Oil 1,200 mg Softgel] 1 capsule PO DAILY Magnesium Chloride [Slow Mag] 64 mg PO BID
[2016-09-22 08:50] LABS: Risk Ratio 2.95; VLDL CHOLESTEROL 14.2 MG/DL
[2016-09-22] MEDS: SODIUM CHLOR 0.45% KCL 20 MEQ 20 MEQ/1,000 ML BAG IV SCH (09:07)
[2016-09-22] MEDS: LOSARTAN 50 MG TABLET PO SCH (09:09)
[2016-09-22] MEDS: hydroCHLOROthiazide 12.5 MG CAPSULE PO SCH (09:10)
[2016-09-22] MEDS: OMEGA 3 ACID ETHYL ESTERS 1 GM CAPSULE PO SCH (09:10)
[2016-09-22] MEDS: amLODIPine 10 MG TABLET PO SCH (09:10)
[2016-09-22] MEDS: DOCUSATE SODIUM 100 MG CAPSULE PO SCH (09:11)
[2016-09-22] MEDS: MAGNESIUM CHLORIDE 64 MG TABLET PO SCH ×2 (09:11→20:47)
[2016-09-22] MEDS: ASPIRIN EC 325 MG TABLET PO SCH (09:11)
[2016-09-22] MEDS: FERROUS SULFATE 325 MG TABLET PO SCH (09:11)
[2016-09-22] MEDS: PANTOPRAZOLE 40 MG TABLET PO SCH (09:11)
[2016-09-22] MEDS: METOPROLOL TARTRATE 25 MG TABLET PO SCH (09:12)
[2016-09-22] MEDS: oxyCODONE/ACETAMINOPHEN 5-325 MG TABLET PO PRN ×2 (09:16→13:28)
--- NOTE | 2016-09-22 09:34 | Cardiothoracic Progress Note ---
Cardiothoracic Subjective Interval history: Patient is doing well. He has been ambulating without assistance. His vital signs are stable and he is breathing comfortably. We will increase his activity according to routine postoperative protocol. He may be ready for discharge in the morning. Exam (Progress Note) - Constitutional Vitals: Period Temp Pulse Resp BP Sys/Judge Pulse Ox Last 24 Hr 97.4 F-98.5 F 75-106 13-22 84-123/46-87 90-96 Result/EKG - Labs CBC & BMP: 09/22/16 04:17 09/22/16 04:17 Labs: Laboratory Results - last 24 hr 09/21/16 09/21/16 09/21/16 11:15 16:04 19:39 WBC RBC Hgb Hct MCV MCH MCHC RDW Plt Count MPV Neut % (Auto) Lymph % (Auto) [place] % (Auto) Eos % (Auto) Baso % (Auto) Neut # (Auto) Lymph # (Auto) [place] # (Auto) Eos # (Auto) Baso # (Auto) Immature Gran % Nucleated RBC % Immature Gran # Nucleated RBCs # Sodium Potassium Chloride Carbon Dioxide Anion Gap BUN Creatinine GFR Calculation BUN/Creatinine Ratio Glucose POC Glucose 160 H 327 H Calculated Osmolality Calcium Magnesium Total Bilirubin Direct Bilirubin Indirect Bilirubin AST ALT Alkaline Phosphatase Total Creatine Kinase 215 CK-MB (CK-2) 5.6 H CK and CKMB Interp 2.6 Troponin I 1.110 H D Total Protein Albumin Globulin Albumin/Globulin Ratio Triglycerides Cholesterol LDL Cholesterol VLDL Cholesterol HDL Cholesterol Heart Disease Risk Ratio 09/22/16 09/22/16 09/22/16 02:17 04:16 04:17 WBC 14.5 H RBC 3.14 L Hgb 10.8 L Hct 31.0 L MCV 98.7 MCH 34 MCHC 34.8 RDW 11.8 Plt Count 161 MPV 10.3 Neut % (Auto) 81.6 H Lymph % (Auto) 8.8 L [place] % (Auto) 8.8 Eos % (Auto) 0.1 Baso % (Auto) 0.1 Neut # (Auto) 11.8 H Lymph # (Auto) 1.3 L [place] # (Auto) 1.3 H Eos # (Auto) 0.0 Baso # (Auto) 0.0 Immature Gran % 0.6 Nucleated RBC % 0.0 Immature Gran # 0.09 Nucleated RBCs # 0.00 Sodium Potassium Chloride Carbon Dioxide Anion Gap BUN Creatinine GFR Calculation BUN/Creatinine Ratio Glucose POC Glucose 171 H Calculated Osmolality Calcium Magnesium Total Bilirubin Direct Bilirubin Indirect Bilirubin AST ALT Alkaline Phosphatase Total Creatine Kinase CK-MB (CK-2) CK and CKMB Interp Troponin I Total Protein Albumin Globulin Albumin/Globulin Ratio Triglycerides 71 Cholesterol 168 LDL Cholesterol 92.0 VLDL Cholesterol 14.2 HDL Cholesterol 57 Heart Disease Risk Ratio 2.95 09/22/16 09/22/16 09/22/16 04:17 04:48 07:15 WBC RBC Hgb Hct MCV MCH MCHC RDW Plt Count MPV Neut % (Auto) Lymph % (Auto) [place] % (Auto) Eos % (Auto) Baso % (Auto) Neut # (Auto) Lymph # (Auto) [place] # (Auto) Eos # (Auto) Baso # (Auto) Immature Gran % Nucleated RBC % Immature Gran # Nucleated RBCs # Sodium 143 Potassium 4.1 Chloride 107 Carbon Dioxide 29 Anion Gap 11.1 BUN 22 H Creatinine 0.80 GFR Calculation 127 BUN/Creatinine Ratio 27.00 H Glucose 121 H POC Glucose 133 H 116 H Calculated Osmolality 288.0 Calcium 8.3 L Magnesium 2.3 Total Bilirubin 1.00 Direct Bilirubin 0.2 Indirect Bilirubin 0.8 AST 47 H ALT 95 H Alkaline Phosphatase 56 Total Creatine Kinase 160 D CK-MB (CK-2) 2.1 CK and CKMB Interp Troponin I 0.647 H D Total Protein 5.5 L Albumin 2.9 L Globulin 2.6 Albumin/Globulin Ratio 1.1 Triglycerides Cholesterol LDL Cholesterol VLDL Cholesterol HDL Cholesterol Heart Disease Risk Ratio Quality Measures - VTE Contraindication to Pharmacological VTE Prophylaxis: High Risk of Bleeding Specialty Discharge - Follow Up or Referrals - Discharge Medications No Action Losartan/Hydrochlorothiazide [Losartan-Hctz 100-12.5 mg Tab] 1 tablet PO DAILY Aspirin [Ecotrin] 325 mg PO DAILY Amlodipine Besylate 10 mg PO DAILY Metoprolol Tartrate 25 mg PO DAILY [place]-3S/Dha/Epa/Fish Oil [Fish Oil 1,200 mg Softgel] 1 capsule PO DAILY Magnesium Chloride [Slow Mag] 64 mg PO BID
--- NOTE | 2016-09-22 11:25 | Hospitalist Progress Note ---
Assessment and Plan (1) S/P CABG x 2 Status: Acute Assessment and plan: He is stable day 2 status post CABG surgery. Current Visit: Yes (2) Hypertension Status: Chronic Current Visit: Yes (3) COPD (chronic obstructive pulmonary disease) Status: Chronic Current Visit: Yes Hospitalist: Subjective Interval history: He is walking in the slater. He wants to go home tomorrow. Exam - Constitutional Vitals: Period Temp Pulse Resp BP Sys/Judge Pulse Ox Last 24 Hr 97.4 F-98.4 F 75-92 15-22 96-123/58-87 90-96 General appearance: no acute distress - Head Head exam: Present: normal inspection - Neck Neck exam: Present: normal inspection - Respiratory Respiratory exam: Present: clear to auscultation bilaterally - Cardiovascular Cardiovascular exam: Present: regular rate and rhythm - GI/Abdominal GI/Abdominal exam: Present: normal bowel sounds, soft - Extremities Exam Extremities exam: Present: normal inspection - Skin Skin exam: Present: normal color Results - Labs CBC & BMP: 09/22/16 04:17 09/22/16 04:17 Quality Measures - VTE Contraindication to Pharmacological VTE Prophylaxis: High Risk of Bleeding Specialty Discharge - Follow Up or Referrals - Discharge Medications No Action Losartan/Hydrochlorothiazide [Losartan-Hctz 100-12.5 mg Tab] 1 tablet PO DAILY Aspirin [Ecotrin] 325 mg PO DAILY Amlodipine Besylate 10 mg PO DAILY Metoprolol Tartrate 25 mg PO DAILY [place]-3S/Dha/Epa/Fish Oil [Fish Oil 1,200 mg Softgel] 1 capsule PO DAILY Magnesium Chloride [Slow Mag] 64 mg PO BID
[2016-09-23] MEDS: MORPHINE 2 MG/1 ML SYRINGE IV PRN (02:15)
[2016-09-23] MEDS: chlordiazePOXIDE 25 MG CAPSULE PO SCH ×2 (04:38→07:12)
[2016-09-23] MEDS: KETOROLAC 30 MG/1 ML VIAL IV SCH ×2 (04:39→08:48)
[2016-09-23 05:08] LABS: Basophils % 0.1 % (0.0-0.8); Eosinophils # 0.1 10*3/uL (0.0-0.87); Hematocrit 32.3 VOL% (42.0-52.0); Immature Granulocytes % 0.7 %; Immature Granulocytes Absolute 0.08 #; Lymphocytes # 2.8 10*3/uL (1.4-4.0); Lymphocytes % 24.4 % (21.2-54.2); Mean Corpuscular HGB Conc 34.1 GM/DL (32-36); Mean Corpuscular Hemoglobin 34 PG (27-34); Mean Corpuscular Volume 99.4 FL (87-102); Mean Platelet Volume 10.3 FL (9.6-12.0); Monocytes # 1.2 10*3/uL (0.11-0.8); Monocytes % 10.2 % (1.7-12.7); Neutrophils # 7.4 10*3/uL (1.4-7.4); Neutrophils % 63.6 % (38.7-73.9); Platelet Count 163 10*3/uL (130-400); Red Blood Count 3.25 10*6/uL (3.8-5.5); Red Cell Distribution Width 11.9 % (9.3-17.3); White Blood Count 11.5 10*3/uL (4.5-13.71)
[2016-09-23 05:45] LABS: Alanine Aminotransferase 94 U/L (16-61); Albumin 2.9 G/DL (3.4-5.0); Alkaline Phosphatase 58 U/L (45-117); Aspartate Amino Transferase 55 U/L (0-37); Bilirubin,Direct 0.3 MG/DL (0.0-0.20); Bilirubin,Indirect 0.8 MG/DL (0.0-1.0); Blood Urea Nitrogen 22 MG/DL (7-18); Calcium 7.8 MG/DL (8.5-10.1); Glucose 93 MG/DL (74-106); Osmolality,Calculated 283.3 MOS/KG (273-304); Potassium 3.6 MMOL/L (3.5-5.1); Sodium 141 MMOL/L (136-145); Total Protein 5.7 G/DL (6.4-8.3)
[2016-09-23 07:37] VITALS: BP 110/73
--- NOTE | 2016-09-23 08:01 | Discharge Summary ---
Hospital Course - Hospital Course Hospital Course: He was hospitalized on 09/18/2016 with unstable angina. He underwent cardiac cath on 09/18/2016 demonstrating severe 3 vessel CAD and normal LV systolic function. He underwent successful CABG surgery on 09/20/2016. His postoperative course was unremarkable. At the time of discharge he was ambulatory with no problems. Diagnosis - Discharge Diagnosis (1) S/P CABG x 2 Status: Acute (2) Hypertension Status: Chronic (3) COPD (chronic obstructive pulmonary disease) Status: Chronic Specialty Discharge - Follow Up or Referrals - Discharge Medications No Action Losartan/Hydrochlorothiazide [Losartan-Hctz 100-12.5 mg Tab] 1 tablet PO DAILY Aspirin [Ecotrin] 325 mg PO DAILY Amlodipine Besylate 10 mg PO DAILY Metoprolol Tartrate 25 mg PO DAILY [place]-3S/Dha/Epa/Fish Oil [Fish Oil 1,200 mg Softgel] 1 capsule PO DAILY Magnesium Chloride [Slow Mag] 64 mg PO BID Discharge Plan - Discharge Data Condition at Discharge: Stable Discharge Diet: advance to your usual diet Activity: resume usual activities as tolerated Hygiene: no restrictions - Discharge Medications Continue Losartan/Hydrochlorothiazide [Losartan-Hctz 100-12.5 mg Tab] 1 tablet PO DAILY Aspirin [Ecotrin] 325 mg PO DAILY Amlodipine Besylate 10 mg PO DAILY Metoprolol Tartrate 25 mg PO DAILY [place]-3S/Dha/Epa/Fish Oil [Fish Oil 1,200 mg Softgel] 1 capsule PO DAILY Magnesium Chloride [Slow Mag] 64 mg PO BID - Follow Up or Referral - Forms/Instructions Instructions: Coronary Artery Bypass Graft (DC), Heart Healthy Diet (GEN), Sternal Precautions (GEN) Exam - Constitutional Vitals: Period Temp Pulse Resp BP Sys/Judge Pulse Ox Last 24 Hr 96.7 F-99.5 F 71-95 16-20 100-124/56-78 90-95 General appearance: no acute distress - Head Head exam: Present: normal inspection - Neck Neck exam: Present: normal inspection - Respiratory Respiratory exam: Present: clear to auscultation bilaterally - Cardiovascular Cardiovascular exam: Present: regular rate and rhythm - GI/Abdominal GI/Abdominal exam: Present: normal bowel sounds, soft - Extremities Exam Extremities exam: Present: normal inspection - Skin Skin exam: Present: normal color Discharge Results Procedures and tests throughout hospitalization: Pending Orders 09/19/16 10:05 Fresh Frozen Plasma Routine Red Blood Cells Leuko Red Routine Single Donor Platelets Routine Type and Screen Routine 09/23/16 04:00 XR chest 1V portable IN AM 09/25/16 04:00 XR chest 2V IN AM Bilirubin Profile Adult IN AM Comp Blood Count Auto Diff IN AM Comprehensive Metabolic Panel IN AM Hepatic (Liver) Panel IN AM Magnesium IN AM Troponin,CKMB & Ck Total IN AM 09/26/16 04:00 XR chest 2V IN AM Bilirubin Profile Adult IN AM Comp Blood Count Auto Diff IN AM Comprehensive Metabolic Panel IN AM Hepatic (Liver) Panel IN AM Magnesium IN AM Troponin,CKMB & Ck Total IN AM Labs on day of discharge: Labs from last 24 hours 09/23/16 09/23/16 09/22/16 04:19 04:19 19:00 WBC 11.5 RBC 3.25 L Hgb 11.0 L Hct 32.3 L MCV 99.4 MCH 34 MCHC 34.1 RDW 11.9 Plt Count 163 MPV 10.3 Neut % (Auto) 63.6 Lymph % (Auto) 24.4 [place] % (Auto) 10.2 Eos % (Auto) 1.0 Baso % (Auto) 0.1 Neut # (Auto) 7.4 Lymph # (Auto) 2.8 [place] # (Auto) 1.2 H Eos # (Auto) 0.1 Baso # (Auto) 0.0 Immature Gran % 0.7 Nucleated RBC % 0.0 Immature Gran # 0.08 Nucleated RBCs # 0.00 Sodium 141 Potassium 3.6 Chloride 104 Carbon Dioxide 29 Anion Gap 11.6 BUN 22 H Creatinine 0.80 GFR Calculation 126 BUN/Creatinine Ratio 27.00 H Glucose 93 POC Glucose 173 H Calculated Osmolality 283.3 Calcium 7.8 L Magnesium 2.0 Total Bilirubin 1.10 H Direct Bilirubin 0.3 H Indirect Bilirubin 0.8 AST 55 H ALT 94 H Alkaline Phosphatase 58 Total Creatine Kinase 87 D CK-MB (CK-2) 1.2 Troponin I 0.450 H D Total Protein 5.7 L Albumin 2.9 L Globulin 2.8 Albumin/Globulin Ratio 1.0 L Triglycerides Cholesterol LDL Cholesterol VLDL Cholesterol HDL Cholesterol Heart Disease Risk Ratio 09/22/16 09/22/16 09/22/16 14:40 11:08 04:16 WBC RBC Hgb Hct MCV MCH MCHC RDW Plt Count MPV Neut % (Auto) Lymph % (Auto) [place] % (Auto) Eos % (Auto) Baso % (Auto) Neut # (Auto) Lymph # (Auto) [place] # (Auto) Eos # (Auto) Baso # (Auto) Immature Gran % Nucleated RBC % Immature Gran # Nucleated RBCs # Sodium Potassium Chloride Carbon Dioxide Anion Gap BUN Creatinine GFR Calculation BUN/Creatinine Ratio Glucose POC Glucose 147 H 145 H Calculated Osmolality Calcium Magnesium Total Bilirubin Direct Bilirubin Indirect Bilirubin AST ALT Alkaline Phosphatase Total Creatine Kinase CK-MB (CK-2) Troponin I Total Protein Albumin Globulin Albumin/Globulin Ratio Triglycerides 71 Cholesterol 168 LDL Cholesterol 92.0 VLDL Cholesterol 14.2 HDL Cholesterol 57 Heart Disease Risk Ratio 2.95 DS: Provider Date of admission: 09/17/16 19:38 Primary care physician: . No PCP Attending physician on admission: Erika Marshall DO Consults: 09/21/16 08:55 Consult to Cardiac Rehabilitation [CONS] Routine Reason for Cardiac Rehabilitation: Other Consult Comment: Post CABG/heart surgery Consult to Diabetes Center, Educator [CONS] Routine Reason for Behavioral Services Tech: Diabetes Education Initial Insulin Education Consult Comment: insulin education Consult to Dietitian [CONS] Routine Reason for Dietitian: Dietary Consult Consult Comment: Cardiac, low salt, low cholesterol diet Consult to Physical Therapy [CONS] Routine Reason for Physical Therapy: Other Consult Comment: CV Rehab Consult to Physician [CONS] Routine Comment: Management of diabetes Consulting Provider: Consult to Specialist Group: Hospitalist Discharging clinician: Daniel Trejo Expected date of discharge: 09/23/16
[2016-09-23] MEDS: amLODIPine 10 MG TABLET PO SCH (08:47)
--- NOTE | 2016-09-23 08:47 | Cardiology Progress Note ---
Assessment and Plan (1) CAD (coronary artery disease) Problem details: Received bare metal stent placement to proximal left anterior descending artery 06/25/07. Status: Acute Current Visit: Yes (2) Chest pain Status: Acute Current Visit: Yes (3) COPD (chronic obstructive pulmonary disease) Status: Chronic Current Visit: Yes (4) GERD (gastroesophageal reflux disease) Status: Chronic Current Visit: Yes (5) Hypertension Status: Chronic Current Visit: Yes (6) Stable angina Status: Acute Current Visit: Yes (7) Former smoker Problem details: Quit 4 years ago. Status: Chronic Current Visit: Yes (8) Status post placement of bare metal coronary artery stent Problem details: Received bare metal stent placement to proximal left anterior descending artery 06/25/07. Status: Chronic Current Visit: Yes Cardiology - PN: Subj Interval history: Cardiology note Postop day #3 LIRA graft to LAD and vein graft to PDA EF 60% Telemetry shows steady sinus rhythm O2 sat 97% on room air Blood pressure 118/78 in the right arm by me Decreased breath sounds but clear Regular rhythm no murmur or gallop Incision looks good Abdomen soft benign Lab data today White count 11.5 hemoglobin 11.0 hematocrit 32.3 Sodium 141 potassium 3.6 chloride 104 CO2 29 BUN 22 creatinine 0.80 Magnesium 2.0 Impression Postop day #3 two-vessel CABG with preop EF 60% Chronic hypertension COPD Former tobacco abuse Obesity Hypercholesterolemia Plan Home per Dr. Holm Office visit with EKG and lab work in 3 weeks with wa Atorvastatin 20 mg daily Exam (Progress Note) - Constitutional Vitals: Period Temp Pulse Resp BP Sys/Judge Pulse Ox Last 24 Hr 96.7 F-99.5 F 71-95 16-20 100-124/56-78 90-95 Result/EKG - Labs CBC & BMP: 09/23/16 04:19 09/23/16 04:19 Labs: Laboratory Results - last 24 hr 09/22/16 09/22/16 09/22/16 04:16 11:08 14:40 WBC RBC Hgb Hct MCV MCH MCHC RDW Plt Count MPV Neut % (Auto) Lymph % (Auto) [place] % (Auto) Eos % (Auto) Baso % (Auto) Neut # (Auto) Lymph # (Auto) [place] # (Auto) Eos # (Auto) Baso # (Auto) Immature Gran % Nucleated RBC % Immature Gran # Nucleated RBCs # Sodium Potassium Chloride Carbon Dioxide Anion Gap BUN Creatinine GFR Calculation BUN/Creatinine Ratio Glucose POC Glucose 145 H 147 H Calculated Osmolality Calcium Magnesium Total Bilirubin Direct Bilirubin Indirect Bilirubin AST ALT Alkaline Phosphatase Total Creatine Kinase CK-MB (CK-2) Troponin I Total Protein Albumin Globulin Albumin/Globulin Ratio Triglycerides 71 Cholesterol 168 LDL Cholesterol 92.0 VLDL Cholesterol 14.2 HDL Cholesterol 57 Heart Disease Risk Ratio 2.95 09/22/16 09/23/16 09/23/16 19:00 04:19 04:19 WBC 11.5 RBC 3.25 L Hgb 11.0 L Hct 32.3 L MCV 99.4 MCH 34 MCHC 34.1 RDW 11.9 Plt Count 163 MPV 10.3 Neut % (Auto) 63.6 Lymph % (Auto) 24.4 [place] % (Auto) 10.2 Eos % (Auto) 1.0 Baso % (Auto) 0.1 Neut # (Auto) 7.4 Lymph # (Auto) 2.8 [place] # (Auto) 1.2 H Eos # (Auto) 0.1 Baso # (Auto) 0.0 Immature Gran % 0.7 Nucleated RBC % 0.0 Immature Gran # 0.08 Nucleated RBCs # 0.00 Sodium 141 Potassium 3.6 Chloride 104 Carbon Dioxide 29 Anion Gap 11.6 BUN 22 H Creatinine 0.80 GFR Calculation 126 BUN/Creatinine Ratio 27.00 H Glucose 93 POC Glucose 173 H Calculated Osmolality 283.3 Calcium 7.8 L Magnesium 2.0 Total Bilirubin 1.10 H Direct Bilirubin 0.3 H Indirect Bilirubin 0.8 AST 55 H ALT 94 H Alkaline Phosphatase 58 Total Creatine Kinase 87 D CK-MB (CK-2) 1.2 Troponin I 0.450 H D Total Protein 5.7 L Albumin 2.9 L Globulin 2.8 Albumin/Globulin Ratio 1.0 L Triglycerides Cholesterol LDL Cholesterol VLDL Cholesterol HDL Cholesterol Heart Disease Risk Ratio Quality Measures - VTE Contraindication to Pharmacological VTE Prophylaxis: High Risk of Bleeding Specialty Discharge - Follow Up or Referrals - Discharge Medications Continue Losartan/Hydrochlorothiazide [Losartan-Hctz 100-12.5 mg Tab] 1 tablet PO DAILY Aspirin [Ecotrin] 325 mg PO DAILY Amlodipine Besylate 10 mg PO DAILY Metoprolol Tartrate 25 mg PO DAILY [place]-3S/Dha/Epa/Fish Oil [Fish Oil 1,200 mg Softgel] 1 capsule PO DAILY Magnesium Chloride [Slow Mag] 64 mg PO BID
[2016-09-23] MEDS: ASPIRIN EC 325 MG TABLET PO SCH (08:48)
[2016-09-23] MEDS: METOPROLOL TARTRATE 25 MG TABLET PO SCH (08:48)
[2016-09-23] MEDS: OMEGA 3 ACID ETHYL ESTERS 1 GM CAPSULE PO SCH (08:48)
[2016-09-23] MEDS: LOSARTAN 50 MG TABLET PO SCH (08:48)
[2016-09-23] MEDS: PANTOPRAZOLE 40 MG TABLET PO SCH (08:48)
[2016-09-23] MEDS: FERROUS SULFATE 325 MG TABLET PO SCH (08:48)
[2016-09-23] MEDS: MAGNESIUM CHLORIDE 64 MG TABLET PO SCH (08:48)
[2016-09-23] MEDS: DOCUSATE SODIUM 100 MG CAPSULE PO SCH (08:48)
[2016-09-23] MEDS: hydroCHLOROthiazide 12.5 MG CAPSULE PO SCH (08:48)
[2016-09-23] MEDS ORDERED: ATORVASTATIN 20 MG TABLET PO SCH (09:00)
--- NOTE | 2016-09-23 09:48 | Discharge Summary ---
Hospital Course - Hospital Course Hospital Course: History of present illness: Patient is a 61-year-old man who had had a previous stent placed in his anterior descending coronary artery approximately 10 years ago. He had done well until recently when he began to experience substernal chest discomfort suggestive of ischemic heart pain. He presented here for evaluation including cardiac catheterization which demonstrated severe progression of disease. Patient was advised to have bypass surgery and was referred for that purpose. Past medical history review of systems social history and family history are documented in his admission note. Hospital course: Patient was taken to surgery and underwent 2 vessel grafting with an anterior descending coronary artery grafted using the left internal mammary artery and a saphenous vein graft placed to the right posterior descending coronary artery. Patient's postoperative course was uncomplicated and he was discharged home on the third postoperative day with instructions to return for follow-up in 1 month. Specialty Discharge - Follow Up or Referrals Follow up with: Ismael Holm MD [Physician] - 1 Month - Discharge Medications Continue Losartan/Hydrochlorothiazide [Losartan-Hctz 100-12.5 mg Tab] 1 tablet PO DAILY Aspirin [Ecotrin] 325 mg PO DAILY Amlodipine Besylate 10 mg PO DAILY Metoprolol Tartrate 25 mg PO DAILY [place]-3S/Dha/Epa/Fish Oil [Fish Oil 1,200 mg Softgel] 1 capsule PO DAILY Magnesium Chloride [Slow Mag] 64 mg PO BID Discharge Plan - Discharge Data Condition at Discharge: Stable Discharge Diet: advance to your usual diet Activity: resume usual activities as tolerated Hygiene: no restrictions Weight Bearing at Discharge: full weight bearing Driving: not for (10 days) - Discharge Medications New Atorvastatin [Lipitor] 20 mg PO DAILY tablet Continue Losartan/Hydrochlorothiazide [Losartan-Hctz 100-12.5 mg Tab] 1 tablet PO DAILY Aspirin [Ecotrin] 325 mg PO DAILY Amlodipine Besylate 10 mg PO DAILY Metoprolol Tartrate 25 mg PO DAILY [place]-3S/Dha/Epa/Fish Oil [Fish Oil 1,200 mg Softgel] 1 capsule PO DAILY Magnesium Chloride [Slow Mag] 64 mg PO BID - Follow Up or Referral - Forms/Instructions Instructions: Coronary Artery Bypass Graft (DC), Heart Healthy Diet (GEN), Sternal Precautions (GEN) Exam - Constitutional Vitals: Period Temp Pulse Resp BP Sys/Judge Pulse Ox Last 24 Hr 96.7 F-99.5 F 71-95 16-20 100-124/56-78 90-95 Discharge Results Procedures and tests throughout hospitalization: Pending Orders 09/19/16 10:05 Fresh Frozen Plasma Routine Red Blood Cells Leuko Red Routine Single Donor Platelets Routine Type and Screen Routine 09/23/16 04:00 XR chest 1V portable IN AM 09/25/16 04:00 XR chest 2V IN AM Bilirubin Profile Adult IN AM Comp Blood Count Auto Diff IN AM Comprehensive Metabolic Panel IN AM Hepatic (Liver) Panel IN AM Magnesium IN AM Troponin,CKMB & Ck Total IN AM 09/26/16 04:00 XR chest 2V IN AM Bilirubin Profile Adult IN AM Comp Blood Count Auto Diff IN AM Comprehensive Metabolic Panel IN AM Hepatic (Liver) Panel IN AM Magnesium IN AM Troponin,CKMB & Ck Total IN AM Labs on day of discharge: Labs from last 24 hours 09/23/16 09/23/16 09/22/16 04:19 04:19 19:00 WBC 11.5 RBC 3.25 L Hgb 11.0 L Hct 32.3 L MCV 99.4 MCH 34 MCHC 34.1 RDW 11.9 Plt Count 163 MPV 10.3 Neut % (Auto) 63.6 Lymph % (Auto) 24.4 [place] % (Auto) 10.2 Eos % (Auto) 1.0 Baso % (Auto) 0.1 Neut # (Auto) 7.4 Lymph # (Auto) 2.8 [place] # (Auto) 1.2 H Eos # (Auto) 0.1 Baso # (Auto) 0.0 Immature Gran % 0.7 Nucleated RBC % 0.0 Immature Gran # 0.08 Nucleated RBCs # 0.00 Sodium 141 Potassium 3.6 Chloride 104 Carbon Dioxide 29 Anion Gap 11.6 BUN 22 H Creatinine 0.80 GFR Calculation 126 BUN/Creatinine Ratio 27.00 H Glucose 93 POC Glucose 173 H Calculated Osmolality 283.3 Calcium 7.8 L Magnesium 2.0 Total Bilirubin 1.10 H Direct Bilirubin 0.3 H Indirect Bilirubin 0.8 AST 55 H ALT 94 H Alkaline Phosphatase 58 Total Creatine Kinase 87 D CK-MB (CK-2) 1.2 Troponin I 0.450 H D Total Protein 5.7 L Albumin 2.9 L Globulin 2.8 Albumin/Globulin Ratio 1.0 L 09/22/16 09/22/16 14:40 11:08 WBC RBC Hgb Hct MCV MCH MCHC RDW Plt Count MPV Neut % (Auto) Lymph % (Auto) [place] % (Auto) Eos % (Auto) Baso % (Auto) Neut # (Auto) Lymph # (Auto) [place] # (Auto) Eos # (Auto) Baso # (Auto) Immature Gran % Nucleated RBC % Immature Gran # Nucleated RBCs # Sodium Potassium Chloride Carbon Dioxide Anion Gap BUN Creatinine GFR Calculation BUN/Creatinine Ratio Glucose POC Glucose 147 H 145 H Calculated Osmolality Calcium Magnesium Total Bilirubin Direct Bilirubin Indirect Bilirubin AST ALT Alkaline Phosphatase Total Creatine Kinase CK-MB (CK-2) Troponin I Total Protein Albumin Globulin Albumin/Globulin Ratio DS: Provider Date of admission: 09/17/16 19:38 Primary care physician: . No PCP Attending physician on admission: Erika Marshall DO Consults: 09/21/16 08:55 Consult to Cardiac Rehabilitation [CONS] Routine Reason for Cardiac Rehabilitation: Other Consult Comment: Post CABG/heart surgery Consult to Diabetes Center, Educator [CONS] Routine Reason for Group Burner Machine: Diabetes Education Initial Insulin Education Consult Comment: insulin education Consult to Dietitian [CONS] Routine Reason for Dietitian: Dietary Consult Consult Comment: Cardiac, low salt, low cholesterol diet Consult to Physical Therapy [CONS] Routine Reason for Physical Therapy: Other Consult Comment: CV Rehab Consult to Physician [CONS] Routine Comment: Management of diabetes Consulting Provider: Consult to Specialist Group: Hospitalist Discharging clinician: Ismael Holm MD Expected date of discharge: 09/23/16
[2016-09-23] MEDS: CHLORHEXIDINE 0.12% ORAL RINSE 60 ML BOTTLE SWISH/SPIT SCH (09:56)
--- NOTE | 2016-09-23 11:54 | XRay Report ---
History: Shortness of breath Date: 09/23/2016 6:49 AM Study: Chest x-ray portable Comparison exam: Chest x-ray 09/22/2016 The left subclavian central line remains in satisfactory position. There is continued cardiomegaly. The mediastinal contours are stable in this patient status post prior median sternotomy. The pulmonary vasculature is not engorged. There is some mild bibasilar atelectasis which is slightly increased on the left. There is mild left pleural effusion. The osseous structures are unchanged. Impression: Mildly increased left lower lobe atelectasis compared to the previous study. Otherwise unchanged PROCEDURE INTERPRETED AT [facility] DEPARTMENT OF RADIOLOGY Final Report Signed by: Dr. Regina Foley
== END 2016-09-23 12:15 | disposition home or self-care (01) | DRG 234 ==
LOC: N.ED 17:18 → N.EDINP 19:38 → N.TELES 20:17 → N.CVR 09-20 08:07 → N.TELES 09-21 15:04
PROVIDERS: ADMIT Internal Medicine Cardiovascular Disease; ATTEND Internal Medicine Cardiovascular Disease

== ENCOUNTER 2021-02-18 14:16 | Inpatient (IN) ==
[2021-02-18 15:16] LABS: Basophils % 0.1 % (0.0-0.8); Eosinophils % 0.1 % (0.00-10.9); Hematocrit 39.8 VOL% (42.0-52.0); Hemoglobin 14.1 GM/DL (14.0-18.0); Immature Granulocytes % 0.4 %; Immature Granulocytes Absolute 0.03 #; Lymphocytes % 13.5 % (21.2-54.2); Mean Corpuscular HGB Conc 35.4 GM/DL (32-36); Mean Corpuscular Volume 100.8 FL (87-102); Mean Platelet Volume 9.9 FL (9.6-12.0); Monocytes % 7.4 % (1.7-12.7); Neutrophils % 78.5 % (38.7-73.9); Platelet Count 168 T/CUMM (130-400); Red Blood Count 3.95 MC/CUMM (3.8-5.5); Red Cell Distribution Width 11.9 % (9.3-17.3); White Blood Count 7.3 T/CUMM (4-12)
[2021-02-18 15:22] LABS: Albumin 2.8 G/DL (3.4-5.0); Bilirubin,Total 1.4 MG/DL (0.2-1.0); Calcium 8.4 MG/DL (8.5-10.1); Ferritin 985.4 ng/ml (26-388); Osmolality,Calculated 270.4 MOS/KG (273-304); Potassium 2.8 MMOL/L (3.5-5.1); Total Protein 7.2 G/DL (6.4-8.2)
[2021-02-18 15:23] LABS: INR 1.1; PT Patient Result 11.9 SECS (10.5-12.0)
[2021-02-18] MEDS ORDERED: DEXTROSE 50% 25 GM/50 ML VIAL IV PRN (15:38)
[2021-02-18] MEDS ORDERED: GLUCAGON 1 MG VIAL IM PRN (15:38)
[2021-02-18] MEDS ORDERED: ONDANSETRON 4 MG/2 ML VIAL IV PRN (15:38)
[2021-02-18] MEDS ORDERED: DOCUSATE SODIUM 100 MG CAPSULE PO PRN (15:44)
[2021-02-18] MEDS ORDERED: ENOXAPARIN 40 MG/0.4 ML SYRINGE SUBCUT SCH (16:00)
[2021-02-18] MEDS: PANTOPRAZOLE 40 MG VIAL IV SCH (16:13)
[2021-02-18] MEDS: LEVOFLOXACIN INJ 500 MG/100 ML PREMIX IV SCH (16:13)
[2021-02-18] MEDS: DEXAMETHASONE 4 MG/1 ML VIAL IV SCH (16:13)
[2021-02-18] MEDS: THIAMINE 100 MG TABLET PO SCH (16:26)
[2021-02-18] MEDS: FOLIC ACID 1 MG TABLET PO SCH (16:26)
[2021-02-18] MEDS: MULTIVITAMIN (BEROCCA) TABLET PO SCH (16:26)
[2021-02-18] MEDS: POTASSIUM CHLORIDE 20 MEQ TABLET PO PRN ×3 (18:12→23:06)
[2021-02-18] MEDS: MAGNESIUM CHLORIDE 64 MG TABLET PO SCH (20:56)
[2021-02-18] MEDS ORDERED: REMDESIVIR 200 MG in SODIUM CHLORIDE 0.9% 210 ML IV ONE (21:00)
[2021-02-18] MEDS ORDERED: MELATONIN 3 MG TABLET PO PRN (23:17)
[2021-02-19] MEDS: POTASSIUM CHLORIDE 20 MEQ TABLET PO PRN (01:27)
[2021-02-19 05:34] LABS: Hematocrit 40.5 VOL% (42.0-52.0); Hemoglobin 14.2 GM/DL (14.0-18.0); Immature Granulocytes % 0.3 %; Immature Granulocytes Absolute 0.01 #; Lymphocytes # 0.5 10*3/uL (1.4-4.0); Lymphocytes % 16.8 % (21.2-54.2); Mean Corpuscular HGB Conc 35.1 GM/DL (32-36); Mean Corpuscular Volume 100.7 FL (87-102); Mean Platelet Volume 9.8 FL (9.6-12.0); Monocytes % 5.4 % (1.7-12.7); Neutrophils % 77.5 % (38.7-73.9); Platelet Count 160 T/CUMM (130-400); Red Blood Count 4.02 MC/CUMM (3.8-5.5); Red Cell Distribution Width 11.9 % (9.3-17.3); White Blood Count 3.2 T/CUMM (4-12)
[2021-02-19 06:04] LABS: Albumin 2.6 G/DL (3.4-5.0); Bilirubin,Total 1.1 MG/DL (0.2-1.0); Osmolality,Calculated 277.2 MOS/KG (273-304); Potassium 3.8 MMOL/L (3.5-5.1); Total Protein 7.1 G/DL (6.4-8.2)
[2021-02-19 06:05] LABS: Ferritin 865.3 ng/ml (26-388)
[2021-02-19 06:15] LABS: Anisocytosis Slight; Macrocytosis Slight; Platelet Estimate Normal
[2021-02-19] MEDS: MAGNESIUM CHLORIDE 64 MG TABLET PO SCH ×2 (08:41→21:17)
[2021-02-19] MEDS: CHOLECALCIFEROL 1,000 UNIT TABLET PO SCH (08:41)
[2021-02-19] MEDS: DEXAMETHASONE 4 MG/1 ML VIAL IV SCH (08:42)
[2021-02-19] MEDS: FOLIC ACID 1 MG TABLET PO SCH (08:42)
[2021-02-19] MEDS: ASPIRIN EC 325 MG TABLET PO SCH (08:42)
[2021-02-19] MEDS: THIAMINE 100 MG TABLET PO SCH (08:42)
[2021-02-19] MEDS: PANTOPRAZOLE 40 MG VIAL IV SCH (08:43)
[2021-02-19] MEDS: MULTIVITAMIN (BEROCCA) TABLET PO SCH (08:44)
[2021-02-19] MEDS: ENOXAPARIN 40 MG/0.4 ML SYRINGE SUBCUT SCH (12:48)
[2021-02-19] MEDS: LEVOFLOXACIN INJ 500 MG/100 ML PREMIX IV SCH (16:32)
[2021-02-19] MEDS: chlordiazePOXIDE 25 MG CAPSULE PO SCH ×3 (16:32→22:46)
[2021-02-19] MEDS ORDERED: ACETAMINOPHEN 500 MG TABLET PO ONE (20:20)
[2021-02-19] MEDS: DULoxetine 30 MG CAPSULE PO SCH (21:17)
[2021-02-19] MEDS: REMDESIVIR 100 MG in SODIUM CHLORIDE 0.9% 100 ML IV SCH (21:17)
[2021-02-20] MEDS: ENOXAPARIN 40 MG/0.4 ML SYRINGE SUBCUT SCH ×3 (02:03→23:26)
[2021-02-20 05:41] LABS: Albumin 2.8 G/DL (3.4-5.0); Bilirubin,Total 1.5 MG/DL (0.2-1.0); Calcium 8.5 MG/DL (8.5-10.1); Osmolality,Calculated 284.7 MOS/KG (273-304); Potassium 3.6 MMOL/L (3.5-5.1); Total Protein 6.5 G/DL (6.4-8.2)
[2021-02-20 05:42] LABS: Basophils % 0.1 % (0.0-0.8); Hematocrit 40.3 VOL% (42.0-52.0); Hemoglobin 14.7 GM/DL (14.0-18.0); Immature Granulocytes % 0.9 %; Immature Granulocytes Absolute 0.07 #; Lymphocytes # 0.8 10*3/uL (1.4-4.0); Lymphocytes % 11.1 % (21.2-54.2); Mean Corpuscular HGB Conc 36.5 GM/DL (32-36); Mean Corpuscular Volume 99.8 FL (87-102); Mean Platelet Volume 10.1 FL (9.6-12.0); Monocytes % 5.9 % (1.7-12.7); Platelet Count 190 T/CUMM (130-400); Red Blood Count 4.04 MC/CUMM (3.8-5.5); Red Cell Distribution Width 11.6 % (9.3-17.3); White Blood Count 7.6 T/CUMM (4-12)
[2021-02-20 05:47] LABS: Calcium 8.8 MG/DL (8.5-10.1); Osmolality,Calculated 279.8 MOS/KG (273-304); Potassium 3.4 MMOL/L (3.5-5.1)
[2021-02-20 05:51] LABS: Ferritin 807.1 ng/ml (26-388)
[2021-02-20 05:57] LABS: Anisocytosis Slight; Platelet Estimate Normal
[2021-02-20 05:58] LABS: Macrocytosis Slight
[2021-02-20] MEDS: chlordiazePOXIDE 25 MG CAPSULE PO SCH ×3 (06:27→21:09)
[2021-02-20] MEDS: MULTIVITAMIN (BEROCCA) TABLET PO SCH (10:01)
[2021-02-20] MEDS: THIAMINE 100 MG TABLET PO SCH (10:01)
[2021-02-20] MEDS: ASPIRIN EC 325 MG TABLET PO SCH (10:01)
[2021-02-20] MEDS: PANTOPRAZOLE 40 MG VIAL IV SCH (10:01)
[2021-02-20] MEDS: FOLIC ACID 1 MG TABLET PO SCH (10:01)
[2021-02-20] MEDS: CHOLECALCIFEROL 1,000 UNIT TABLET PO SCH (10:01)
[2021-02-20] MEDS: MAGNESIUM CHLORIDE 64 MG TABLET PO SCH ×2 (10:01→20:20)
[2021-02-20] MEDS: DULoxetine 30 MG CAPSULE PO SCH (10:01)
[2021-02-20] MEDS: DEXAMETHASONE 4 MG/1 ML VIAL IV SCH (10:01)
[2021-02-20] MEDS: LEVOFLOXACIN INJ 500 MG/100 ML PREMIX IV SCH (18:48)
[2021-02-20] MEDS: REMDESIVIR 100 MG in SODIUM CHLORIDE 0.9% 100 ML IV SCH (20:21)
[2021-02-20] MEDS ORDERED: DULoxetine 30 MG CAPSULE PO SCH (21:00)
[2021-02-21 05:07] LABS: Basophils % 0.1 % (0.0-0.8); Hemoglobin 14.1 GM/DL (14.0-18.0); Immature Granulocytes % 0.4 %; Immature Granulocytes Absolute 0.04 #; Lymphocytes # 0.9 10*3/uL (1.4-4.0); Mean Corpuscular HGB Conc 35.3 GM/DL (32-36); Mean Corpuscular Volume 100.8 FL (87-102); Mean Platelet Volume 9.9 FL (9.6-12.0); Neutrophils % 83.5 % (38.7-73.9); Platelet Count 218 T/CUMM (130-400); Red Blood Count 3.97 MC/CUMM (3.8-5.5); Red Cell Distribution Width 11.7 % (9.3-17.3); White Blood Count 9.3 T/CUMM (4-12)
[2021-02-21] MEDS: chlordiazePOXIDE 25 MG CAPSULE PO SCH ×3 (05:22→22:39)
[2021-02-21 05:28] LABS: Albumin 2.6 G/DL (3.4-5.0); Bilirubin,Total 0.9 MG/DL (0.2-1.0); Calcium 8.7 MG/DL (8.5-10.1); Osmolality,Calculated 273.2 MOS/KG (273-304); Potassium 3.5 MMOL/L (3.5-5.1); Total Protein 6.7 G/DL (6.4-8.2)
[2021-02-21 05:32] LABS: Lymphocytes 12 % (20-55); Platelet Estimate Adequate; Segmented Neutrophils 82 % (50-85); Total Cells Counted 100
[2021-02-21] MEDS: MAGNESIUM CHLORIDE 64 MG TABLET PO SCH ×2 (08:40→20:43)
[2021-02-21] MEDS: FOLIC ACID 1 MG TABLET PO SCH (08:40)
[2021-02-21] MEDS: CHOLECALCIFEROL 1,000 UNIT TABLET PO SCH (08:40)
[2021-02-21] MEDS: MULTIVITAMIN (BEROCCA) TABLET PO SCH (08:40)
[2021-02-21] MEDS: THIAMINE 100 MG TABLET PO SCH (08:40)
[2021-02-21] MEDS: ASPIRIN EC 325 MG TABLET PO SCH (08:40)
[2021-02-21] MEDS: PANTOPRAZOLE 40 MG VIAL IV SCH (08:42)
[2021-02-21] MEDS: DULoxetine 30 MG CAPSULE PO SCH (08:43)
[2021-02-21] MEDS: DEXAMETHASONE 4 MG/1 ML VIAL IV SCH (08:45)
[2021-02-21] MEDS: PANTOPRAZOLE 40 MG TABLET PO SCH (08:55)
[2021-02-21] MEDS: ENOXAPARIN 40 MG/0.4 ML SYRINGE SUBCUT SCH (12:02)
[2021-02-21] MEDS: INSULIN LISPRO 100 UNIT/ML SUBCUT SCH ×2 (12:02→18:18)
[2021-02-21] MEDS: LEVOFLOXACIN INJ 500 MG/100 ML PREMIX IV SCH (17:24)
[2021-02-21] MEDS: REMDESIVIR 100 MG in SODIUM CHLORIDE 0.9% 100 ML IV SCH (20:43)
[2021-02-22] MEDS: ENOXAPARIN 40 MG/0.4 ML SYRINGE SUBCUT SCH ×2 (00:03→13:19)
[2021-02-22] MEDS: INSULIN LISPRO 100 UNIT/ML SUBCUT SCH ×4 (00:03→18:06)
[2021-02-22 05:04] LABS: Basophils % 0.1 % (0.0-0.8); Eosinophils % 0.1 % (0.00-10.9); Hematocrit 40.3 VOL% (42.0-52.0); Hemoglobin 14.4 GM/DL (14.0-18.0); Immature Granulocytes % 0.8 %; Immature Granulocytes Absolute 0.07 #; Lymphocytes # 0.8 10*3/uL (1.4-4.0); Lymphocytes % 9.2 % (21.2-54.2); Mean Corpuscular HGB Conc 35.7 GM/DL (32-36); Mean Corpuscular Volume 99.8 FL (87-102); Mean Platelet Volume 9.6 FL (9.6-12.0); Monocytes % 6.6 % (1.7-12.7); Neutrophils % 83.2 % (38.7-73.9); Platelet Count 231 T/CUMM (130-400); Red Blood Count 4.04 MC/CUMM (3.8-5.5); Red Cell Distribution Width 11.7 % (9.3-17.3); White Blood Count 8.6 T/CUMM (4-12)
[2021-02-22] MEDS: chlordiazePOXIDE 25 MG CAPSULE PO SCH ×3 (05:28→21:43)
[2021-02-22 05:31] LABS: Albumin 2.6 G/DL (3.4-5.0); Bilirubin,Total 0.8 MG/DL (0.2-1.0); Calcium 8.7 MG/DL (8.5-10.1); Potassium 3.5 MMOL/L (3.5-5.1); Total Protein 6.6 G/DL (6.4-8.2)
[2021-02-22 05:33] LABS: Ferritin 613.5 ng/ml (26-388)
[2021-02-22] MEDS: DEXAMETHASONE 4 MG/1 ML VIAL IV SCH (08:58)
[2021-02-22] MEDS: MULTIVITAMIN (BEROCCA) TABLET PO SCH (08:58)
[2021-02-22] MEDS: MAGNESIUM CHLORIDE 64 MG TABLET PO SCH ×2 (08:59→20:15)
[2021-02-22] MEDS: PANTOPRAZOLE 40 MG TABLET PO SCH (08:59)
[2021-02-22] MEDS: FOLIC ACID 1 MG TABLET PO SCH (08:59)
[2021-02-22] MEDS: DULoxetine 30 MG CAPSULE PO SCH (08:59)
[2021-02-22] MEDS: CHOLECALCIFEROL 1,000 UNIT TABLET PO SCH (08:59)
[2021-02-22] MEDS: THIAMINE 100 MG TABLET PO SCH (08:59)
[2021-02-22] MEDS: ASPIRIN EC 325 MG TABLET PO SCH (08:59)
[2021-02-22] MEDS: LEVOFLOXACIN INJ 500 MG/100 ML PREMIX IV SCH (15:35)
[2021-02-22] MEDS: REMDESIVIR 100 MG in SODIUM CHLORIDE 0.9% 100 ML IV SCH (20:16)
[2021-02-23] MEDS: INSULIN LISPRO 100 UNIT/ML SUBCUT SCH ×2 (00:56→06:03)
[2021-02-23] MEDS: ENOXAPARIN 40 MG/0.4 ML SYRINGE SUBCUT SCH (01:01)
[2021-02-23 05:25] VITALS: BP 136/80
[2021-02-23] MEDS: chlordiazePOXIDE 25 MG CAPSULE PO SCH (05:26)
[2021-02-23] MEDS: DULoxetine 30 MG CAPSULE PO SCH (08:00)
[2021-02-23] MEDS: CHOLECALCIFEROL 1,000 UNIT TABLET PO SCH (08:00)
[2021-02-23] MEDS: PANTOPRAZOLE 40 MG TABLET PO SCH (08:00)
[2021-02-23] MEDS: ASPIRIN EC 325 MG TABLET PO SCH (08:00)
[2021-02-23] MEDS: MULTIVITAMIN (BEROCCA) TABLET PO SCH (08:00)
[2021-02-23] MEDS: MAGNESIUM CHLORIDE 64 MG TABLET PO SCH (08:00)
[2021-02-23] MEDS: FOLIC ACID 1 MG TABLET PO SCH (08:00)
[2021-02-23] MEDS: THIAMINE 100 MG TABLET PO SCH (08:01)
[2021-02-23] MEDS: DEXAMETHASONE 4 MG/1 ML VIAL IV SCH (10:08)
== END 2021-02-23 10:17 | disposition home or self-care (01) | DRG 177 ==
LOC: EDBD → EDUNIT# → N.ED 14:16 → N.EDINP 15:37 → SUATTDRO 15:37 → N.EDINP 17:21 → N.CC 17:21
PROVIDERS: ADMIT Hospitalist; ATTEND Internal Medicine